=== PATIENT | male | born 1970 | race Caucasian/White ===

== ENCOUNTER 2021-07-19 17:02 | Inpatient (IN) | payer BC ==
[2021-07-19] MEDS ORDERED: PANTOPRAZOLE 40 MG/10 ML VIAL IVP STA (17:22)
[2021-07-19] MEDS ORDERED: SODIUM CHLORIDE 0.9% 1,000 ML IV STA (17:22)
--- NOTE | 2021-07-19 17:27 | ED ---
General Adult HPI - General Chief complaint: Nausea/Vomiting/Diarrhea Stated complaint: Dehydration, vomiting Time Seen by Provider: 07/19/21 17:10 Source: patient, RN/MD (Case was discussed with Dr. Barajas who would like patient admitted. He will consult.), RN notes reviewed Mode of arrival: ambulatory Limitations: no limitations - History of Present Illness Initial comments: Patient is a pleasant 51-year-old male presenting to the emergency department with dysphagia. Patient had symptoms last week. Patient does have history of tongue and throat cancer. Patient currently is on radiation and chemotherapy. Symptoms have progressively worsened over the past 4-5 days. Patient has limited ability to tolerate liquids. No dyspnea. Patient has been clear his throat frequently. No abdominal pain. No fevers. - Related Data Allergies Allergy/AdvReac Type Severity Reaction Status Date / Time No Known Allergies Allergy Verified 07/19/21 17:07 Review of Systems ROS Statement: Those systems with pertinent positive or pertinent negative responses have been documented in the HPI. ROS Other: All systems not noted in ROS Statement are negative. Constitutional: Denies: fever Eyes: Denies: eye pain ENT: Reports: as per HPI Respiratory: Reports: cough (Occasional cough). Denies: dyspnea Cardiovascular: Denies: chest pain Endocrine: Denies: fatigue Gastrointestinal: Denies: abdominal pain Genitourinary: Denies: dysuria Musculoskeletal: Denies: back pain Skin: Denies: rash Neurological: Denies: weakness Past Medical History Additional Past Medical History / Comment(s): chemo- 07/13/2021. radiation- 07-17-2021. cx of throat and tounge stage 2. History of Any Multi-Drug Resistant Organisms: None Reported Additional Past Surgical History / Comment(s): Arm surgery Past Psychological History: No Psychological Hx Reported Smoking Status: Never smoker Past Alcohol Use History: Unable to Obtain Past Drug Use History: None Reported General Exam Limitations: no limitations General appearance: alert, in no apparent distress Head exam: Present: normocephalic Eye exam: Present: normal appearance, PERRL ENT exam: Present: normal oropharynx Neck exam: Present: normal inspection Respiratory exam: Present: normal lung sounds bilaterally Cardiovascular Exam: Present: regular rate, normal rhythm GI/Abdominal exam: Present: soft. Absent: tenderness Extremities exam: Present: normal inspection. Absent: pedal edema, calf tenderness Neurological exam: Present: alert Psychiatric exam: Present: normal affect, normal mood Skin exam: Present: normal color Course Vital Signs 07/19/21 17:04 Temperature 96.8 F L Pulse Rate 61 Respiratory 18 Rate Blood Pressure 123/75 O2 Sat by Pulse 97 Oximetry Medical Decision Making - Medical Decision Making Patient is made aware of plan. Case was discussed with Dr. Acharya, who will admit covering hospital call. Disposition Clinical Impression: Dehydration, Dysphagia Disposition: ADMITTED IP TO THIS HOSP Is patient prescribed a controlled substance at d/c from ED?: No Referrals: Yari Valencia DO [Primary Care Provider] - 1-2 days Decision Time: 18:35
--- NOTE | 2021-07-19 17:39 | XR ---
EXAMINATION TYPE: XR soft tissue neck DATE OF EXAM: 07/19/2021 COMPARISON: NONE HISTORY: Dysphagia TECHNIQUE: 2 views FINDINGS: Epiglottis is normal. Subglottic trachea appears normal. Prevertebral soft tissues are not thickened. Cervical spine appears intact. Tonsils and adenoids appear within normal limits. IMPRESSION: Negative cervical soft tissue exam
--- NOTE | 2021-07-19 17:40 | XR ---
EXAMINATION TYPE: XR chest 2V DATE OF EXAM: 07/19/2021 COMPARISON: NONE HISTORY: Dysphagia TECHNIQUE: 2 view FINDINGS: Heart and mediastinum are normal. Lungs are clear of infiltrate. There is no heart failure. There is old healed fracture left clavicle. There is no pleural effusion. Bony thorax is intact. IMPRESSION: No active cardiopulmonary disease. Normal heart.
--- NOTE | 2021-07-19 17:41 | XR ---
EXAMINATION TYPE: XR KUB DATE OF EXAM: 07/19/2021 COMPARISON: NONE HISTORY: Dysphagia TECHNIQUE: 2 views upright FINDINGS: Bowel gas pattern is normal. There is no sign of intestinal obstruction or pneumoperitoneum . Fecal pattern is normal. There are no pathologic calcifications. Bony structures are intact. IMPRESSION: Nonacute abdomen.
[2021-07-19] MEDS ORDERED: ONDANSETRON 4 MG/2 ML VIAL IVP PRN (18:36)
[2021-07-19] MEDS ORDERED: NALOXONE 0.4 MG/ML 1 ML VIAL IV PRN (18:36)
[2021-07-19 18:38] LABS: Partial Thromboplastin Time 22.8 sec (22.0-30.0); Prothrombin Time 10.8 sec (9.0-12.0)
[2021-07-19 18:46] LABS: ALT 61 U/L (4-49); AST 34 U/L (17-59); African American GFR (CKD) >90 (>60 ml/min/1.73 sqM); Alkaline Phosphatase 86 U/L (38-126); Amylase 79 U/L (30-110); Anion Gap 8 mmol/L; Blood Urea Nitrogen 23 mg/dL (9-20); Calcium 9.6 mg/dL (8.4-10.2); Carbon Dioxide 29 mmol/L (22-30); Chloride 96 mmol/L (98-107); Glucose 92 mg/dL (74-99); Lipase 77 U/L (23-300); Non-African American GFR(CKD) 79 (>60 ml/min/1.73 sqM); Potassium 3.3 mmol/L (3.5-5.1); Sodium 133 mmol/L (137-145); Total Protein 7.1 g/dL (6.3-8.2)
[2021-07-19 18:57] LABS: HCT 41.8 % (39.0-53.0); HGB 15.1 gm/dL (13.0-17.5); MCH 31.6 pg (25.0-35.0); MCHC 36.3 g/dL (31.0-37.0); MCV 87.3 fL (80.0-100.0); Mean Platelet Volume 6.8; Platelet Count 284 k/uL (150-450); RBC 4.79 m/uL (4.30-5.90); RDW 12.6 % (11.5-15.5); WBC 3.6 k/uL (3.8-10.6)
[2021-07-19 19:13] LABS: Band Neutrophils % 4 %; Lymphocytes # (M) 0.79 k/uL (1.0-4.8); Metamyelocytes # (M) 0.04 k/uL (0); Metamyelocytes % 1 %; Monocytes # (M) 0.43 k/uL (0-1.0); Neutrophils % (M) 61 %; Nucleated Red Blood Cells 0 /100 WBC (0-0); Reactive Lymphocytes Present; Total Cells Counted 100; Toxic Granulation Present
[2021-07-19] MEDS: SODIUM CHLORIDE 0.9% 1,000 ML IV SCH (19:16)
[2021-07-19] MEDS: MORPHINE SULFATE 4 MG/ML SYRINGE IV PRN (22:39)
--- NOTE | 2021-07-20 04:01 | P.HPIM ---
History of Present Illness H&P Date: 07/19/21 Chief Complaint: dysphagia 51 year old male with recent diagnosis of throat cancer patient comes in with 1 week history of worsening dysphagia to both solid and liquid , symptoms got worse over the past 4-5days , patient unable to take PO due to dysphagia and odynophagia he was recently diagnosed with throat cancer, and currently receiving radiation therapy for the past 4 weeks. denies any fever, chills, bleeding from his mouth, denies any URI symptoms , denies headache, or dental issues. denies any history of GERD. he denies any similar symptoms in the past. workup in the ED showed, hypokalemia and COVID negative, CXR no acute pathology patient denies tobacco smoking, and admits to social alcohol intake , denies any thing daily or excessive, denies any drugs Review of Systems Pertinent positives as noted in HPI. All other systems were reviewed and are negative Past Medical History Additional Past Medical History / Comment(s): chemo- 07/13/2021. radiation- 07-17-2021. cx of throat and tounge stage 2. History of Any Multi-Drug Resistant Organisms: None Reported Additional Past Surgical History / Comment(s): Arm surgery Past Psychological History: No Psychological Hx Reported Smoking Status: Never smoker Past Alcohol Use History: Unable to Obtain Past Drug Use History: None Reported - Past Family History famioy Family Medical History: No Reported History Medications and Allergies Home Medications Medication Instructions Recorded Confirmed Type Atorvastatin [Lipitor] 20 mg PO HS 07/19/21 07/19/21 History Hydrocodone/Acetaminophen 15 ml PO Q8H PRN 07/19/21 07/19/21 History [Hydrocodone/Acetaminophen 7.5-325/15 Ml] Omeprazole 40 mg PO DAILY 07/19/21 07/19/21 History hydroCHLOROthiazide 25 mg PO DAILY 07/19/21 07/19/21 History Allergies Allergy/AdvReac Type Severity Reaction Status Date / Time No Known Allergies Allergy Verified 07/19/21 19:41 Physical Exam Vitals: Vital Signs Temp Pulse Pulse Resp BP BP Pulse Ox 07/19/21 22:14 98.5 F 71 16 136/76 95 07/19/21 17:04 96.8 F L 61 18 123/75 97 Intake and Output 07/19/21 07/19/21 07/20/21 14:59 22:59 06:59 Other: Weight 133.81 kg Constitutional: No acute distress, conversant, pleasant Eyes: Anicteric sclerae, moist conjunctiva, Pupils equal round reactive to light ENMT: NC/AT Oropharynx showing sloughing and yellowish exudate over soft palate and oropharynx with erythema Neck: Supple, palpable LN submandibular and anterior cervical over left side, or JVD No carotid bruits No thyromegaly Lungs: Clear to auscultation Clear to percussion Normal respiratory effort, no accessory muscle use Cardiovascular: Heart regular in rate and rhythm, No murmurs, gallops, or rubs No peripheral edema Abdominal: Soft Nontender, no guarding, rebound or rigidity Abdomen moving with respiration Normoactive bowel sounds No hepatomegaly, No splenomegaly No palpable mass No abdominal wall hernia noted Skin: Normal temperature, tone, texture, turgor No induration No subcutaneous nodules No rash, lesions No ulcers Extremities: No digital cyanosis No clubbing Pedal pulses intact and symmetrical Radial pulses intact and symmetrical No calf tenderness Psychiatric: Alert and oriented to person, place and time Appropriate affect fair judgement Neuro Muscles Strength 5/5 in all 4 extremities Sensation to light touch grossly present throughout Cranial nerves II-XII grossly intact No focal sensory deficits Lymphatics: palpable left submandibular and anterior cervical lymph nodes Results CBC & Chem 7: 07/19/21 18:19 07/19/21 18:19 Labs: Abnormal Lab Results - Last 24 Hours (Table) 07/19/21 07/19/21 Range/Units 18:19 18:19 WBC 3.6 L (3.8-10.6) k/uL Lymphocytes # (Manual) 0.79 L (1.0-4.8) k/uL Metamyelocytes # (Man) 0.04 H (0) k/uL Sodium 133 L (137-145) mmol/L Potassium 3.3 L (3.5-5.1) mmol/L Chloride 96 L (98-107) mmol/L BUN 23 H (9-20) mg/dL ALT 61 H (4-49) U/L Assessment and Plan Assessment: acute mucositis of the oropharynx (Radiation induced oral mucositis) throat cancer plan artificial saliva mouth wash nystatin supportive care pain control with opiates oncology consult IVF hydration with normal saline hypokalemia , replace and follow up levels full code lovenox for dvt ppx anticipated length of stay < 2 midnis
[2021-07-20] MEDS ORDERED: POTASSIUM BICARBONATE/CIT AC 20 MEQ TABLET.EFF PO ONE (04:03)
[2021-07-20] MEDS: MORPHINE SULFATE 4 MG/ML SYRINGE IV PRN (04:04)
[2021-07-20] MEDS: SODIUM CHLORIDE 0.9% 1,000 ML IV SCH ×3 (04:04→21:21)
[2021-07-20] MEDS ORDERED: LIDOCAINE VISCOUS 2% 15 ML CUP MUCOUS MEM PRN (06:00)
[2021-07-20] MEDS ORDERED: NYSTATIN 100,000 UNIT/ML SUSP 500,000 UNIT/5 ML CUP PO SCH (09:00)
[2021-07-20] MEDS ORDERED: PANTOPRAZOLE 40 MG/10 ML VIAL IV SCH (09:00)
[2021-07-20] MEDS ORDERED: DRY MOUTH SPRAY 44.3 SPRAY/44.3 ML SPRAY MUCOUS MEM PRN (09:00)
[2021-07-20] MEDS: PANTOPRAZOLE 40 MG TABLET PO SCH (09:03)
[2021-07-20] MEDS: hydroCHLOROthiazide 25 MG TAB PO SCH (09:03)
[2021-07-20] MEDS: ENOXAPARIN 40 MG/0.4 ML SYRINGE SQ SCH (09:04)
[2021-07-20 10:27] LABS: African American GFR (CKD) 81.8 (60.0-200.0); Anion Gap 12.7 mmol/L (10.00-18.00); BUN/Creat Ratio 15.5 Ratio (12.00-20.00); Blood Urea Nitrogen 18.6 mg/dL (9.0-27.0); Calcium 9.3 mg/dL (8.7-10.3); Carbon Dioxide 29.3 mmol/L (20.0-27.5); Non-African American GFR(CKD) 70.6 (60.0-200.0); Potassium 3.6 mmol/L (3.5-5.5)
--- NOTE | 2021-07-20 12:09 | P.CONS ---
History of Present Illness - Reason for Consult Consult date: 07/20/21 completed treatment for head/neck Requesting physician: Aleksandr Sierra - Chief Complaint dyphagia - History of Present Illness Mr. Blakely is a very pleasant 51-year-old male patient of Dr. Roche who presented with a painless left mid cervical lesion persistent for about 2-3 months, progressively enlarging. He had a CT scan done showing 2 enlarged cervical lymph nodes, the largest was 3.3 cm. FNA 03/10/21 was positive for squamous cell carcinoma, P 16 positive. Staging PET scan 04/07/21 showed uptake in the 2 known cervical lymph nodes and left base of the tongue, which was felt to represent the primary tumor site. No other metastatic lesions, no contralateral lymphadenopathy. Patient was evaluated by Dr. Leon, recommendation was for neoadjuvant concurrent chemoradiation. Patient is status post 2 cycles of cisplatin, 07/13/21. He has 2 more weeks of radiation to complete. He has had mild symptoms up until this past weekend. His contacted the service, patient has been having difficulty maintaining oral intake secondary to dysphagia and odynophagia, he has also been experiencing nausea and vomiting, moderate dry mucous membranes. On admission h e was found to have hyponatremia, hypokalemia. He did have an episode of vomiting this a.m. No recent fevers, new or unusual cough, suspicions for aspiration, chest pain, abdominal pain or cramping, acute changes in bowel or bladder habits. The pain he is experiencing is limited to the oral cavity and swallowing Review of Systems 10 point ROS is neg except as stated in HPI Past Medical History Past Medical History: Cancer, Hyperlipidemia, Hypertension Additional Past Medical History / Comment(s): chemo- 07/13/2021. radiation- 07-17-2021. cx of throat and tounge stage 2. History of Any Multi-Drug Resistant Organisms: None Reported Additional Past Surgical History / Comment(s): Arm surgery, has had colonoscopy Additional Past Anesthesia/Blood Transfusion Reaction / Comm: No hx of transfusion at this time Past Psychological History: No Psychological Hx Reported Smoking Status: Never smoker Past Alcohol Use History: Unable to Obtain Past Drug Use History: None Reported - Past Family History famioy Family Medical History: No Reported History Medications and Allergies Home Medications Medication Instructions Recorded Confirmed Type Atorvastatin [Lipitor] 20 mg PO HS 07/19/21 07/19/21 History Hydrocodone/Acetaminophen 15 ml PO Q8H PRN 07/19/21 07/19/21 History [Hydrocodone/Acetaminophen 7.5-325/15 Ml] Omeprazole 40 mg PO DAILY 07/19/21 07/19/21 History hydroCHLOROthiazide 25 mg PO DAILY 07/19/21 07/19/21 History Allergies Allergy/AdvReac Type Severity Reaction Status Date / Time No Known Allergies Allergy Verified 07/19/21 19:41 Physical Exam Vitals: Vital Signs Temp Pulse Pulse Resp BP BP Pulse Ox 07/20/21 04:32 97.7 F 87 16 120/70 97 07/19/21 22:14 98.5 F 71 16 136/76 95 07/19/21 17:04 96.8 F L 61 18 123/75 97 Intake and Output 07/19/21 07/20/21 07/20/21 22:59 06:59 14:59 Intake Total 1420 Balance 1420 Intake: Intake, IV Titration 1300 Amount Sodium Chloride 0.9% 1, 1300 000 ml @ 130 mls/hr IV . Q7H42M [facility] Rx#:[id number] Oral 120 Other: # Voids 1 Weight 133.81 kg - Constitutional General appearance: average body habitus, cooperative, no acute distress - EENT dry mucus membranes Eyes: anicteric sclerae, EOMI ENT: hearing grossly normal - Neck Neck: no lymphadenopathy - Respiratory Respiratory: bilateral: CTA - Cardiovascular Rhythm: regular Heart sounds: normal: S1, S2 Abnormal Heart Sounds: no systolic murmur, no diastolic murmur, no rub, no S3 Gallop, no S4 Gallop, no click, no other leg Peripheral Edema: bilateral: None - Gastrointestinal General gastrointestinal: no absent bowel sounds, no decreased bowel sounds, no distended, no hepatomegaly, no hyperactive bowel sounds, normal bowel sounds, no organomegaly, no rigid, no scaphoid, soft, no splenomegaly, no tenderness, no umbilical hernia, no ventral hernia - Integumentary Integumentary: normal - Neurologic Neurologic: CNII-XII intact - Musculoskeletal Musculoskeletal: strength equal bilaterally - Psychiatric Psychiatric: A&O x's 3, appropriate affect, intact judgment & insight Results CBC & Chem 7: 07/19/21 18:19 07/20/21 05:15 Labs: Abnormal Lab Results - Last 24 Hours (Table) 07/19/21 07/19/21 Range/Units 18:19 18:19 WBC 3.6 L (3.8-10.6) k/uL Lymphocytes # (Manual) 0.79 L (1.0-4.8) k/uL Metamyelocytes # (Man) 0.04 H (0) k/uL Sodium 133 L (137-145) mmol/L Potassium 3.3 L (3.5-5.1) mmol/L Chloride 96 L (98-107) mmol/L BUN 23 H (9-20) mg/dL ALT 61 H (4-49) U/L Comments: Xray neck report reviewed Chest x-ray: report reviewed Abdominal x-ray: report reviewed Assessment and Plan (1) Dehydration Narrative/Plan: IV fluids and electrolyte replacements Current Visit: Yes Status: Acute Priority: High Code(s): E86.0 - DEHYDRATION SNOMED Code(s): 50657476 (2) Dysphagia Narrative/Plan: Kools solution with nystatin ordered 5xDay Dietitian to assess pt and provide options for dysphagia/odynophagia Current Visit: Yes Status: Acute Priority: High Code(s): R13.10 - DYSPHAGIA, UNSPECIFIED SNOMED Code(s): 86835681 (3) Squamous cell cancer of tongue Narrative/Plan: Patient has completed 2 cycles of cisplatin, last dose was 7 days ago. Vomiting and electrolyte derangements are likely secondary to the same. Supportive medications, hydration are all ordered. Discussed the case with Radiation Oncologist. Plan is to hold treatment for today. Radiation Oncologist will see patient and determine when resumption of therapy is most appropriate. Dr. Barajas did discuss with the patient the possibility of palliative PEG tube for nutrition and hydration until completion of treatment. For the next 1-2 days would like to try to treat the side effects of chemotherapy and ease symptoms. Have also asked the dietitian to see the patient to educate them and provide accommodations for clear and full liquid high calorie/protein options. Will reassess the pt and decide with patient if he thinks he will be able to manage for 2 more weeks of radiation as well as an additional 2 weeks of recovery time- total 4 weeks. Will f/u. Current Visit: Yes Status: Acute Priority: High Code(s): C02.9 - MALIGNANT NEOPLASM OF TONGUE, UNSPECIFIED SNOMED Code(s): 734280526 (4) Vomiting Narrative/Plan: Olanzapine and zofran ordered. Current Visit: Yes Status: Acute Priority: High Code(s): R11.10 - VOMITING, UNSPECIFIED SNOMED Code(s): 057043044 Plan: Doctor attests: I performed a history and physical examination of this patient, developed impression and plan of care, discussed with dictator. I agree with dictators note, documented as a scribe.
[2021-07-20] MEDS: MAG HYDROX/AL HYDROX/SIMETH 30 ML, LIDOCAINE VISCOUS 2% 30 ML, diphenhydrAMINE ELIXIR 7... PO SCH ×12 (13:21→21:22)
[2021-07-20] MEDS: ONDANSETRON 4 MG/2 ML VIAL IVP PRN ×2 (13:21→17:51)
[2021-07-20 14:30] VITALS: BMI 40.0
--- NOTE | 2021-07-20 15:53 | P.PN ---
<Cristo Zamora - Last Filed: 07/20/21 15:37> Subjective Progress Note Date: 07/20/21 Hospital course: Patient is a very pleasant 51-year-old male recently diagnosed with throat cancer (squamous cell carcinoma ) and began chemotherapy and radiation 4 weeks ago. Patient reports follows with oncologist Dr. Roche in office and Dr. Martin for radiation/chemotherapy treatments. He presented to the emergency department 07/19/21 with a chief complaint of worsening dysphasia patient reports this began approximately 1 weeks ago after undergoing his second course of chemotherapy on 07/13/21 and has progressively worsened. Patient reports last radiation treatment on 07/19/21 and next dose due today. In the emergency department, patient underwent x-ray soft tissue of neck which was negative for cervical soft tissue abnormalities. Chest x-ray was negative for acute cardiopulmonary process An KUB was also negative for acute process. Patient was found to have leukopenia with WBC count of 3.6, hyponatremia with sodium of 133, and hypokalemia with potassium of 3.3. Labs otherwise showing no sig nificant abnormalities. Covid PCR was negative. Physical exam: Vital signs reviewed and stable. General: Nontoxic, no distress and appears stated age. Derm: Skin warm and dry, normal coloration for ethnicity. Head: Atraumatic, normocephalic and symmetric. Eyes: EOMs intact, no lid lag, and anicteric sclera Mouth: no lip lesions, mucus membranes dry Cardiovascular: regular rate and rhythm with normal S1S2, no murmur, positive posterior tibial pulses bilaterally, and cap refill < 2 seconds. Lungs: Respirations even, regular, and unlabored on room air. Lungs CTA bilaterally, no rhonchi, no rales, no wheezing, and no accessory muscle usage. Abdominal: soft, nontender to palpation, no guarding, no appreciable organomegaly Ext: ROM intact. No gross muscle atrophy, no edema, no contractures Neuro: Speech clear, face symmetrical and CN II-XII grossly intact with no noted focal neuro deficits Psych: Alert and oriented to person, place, time, and situation. Appropriate and pleasant affect. Assessment and Plan of Care: Acute mucositis, radiation-induced oral mucositis Squamous cell carcinoma of the throat Dysphasia Xerostomia -Continue with artificial saliva -Magic mouthwash -Nystatin -Symptomatic and supportive measures -Pain control with opiates -Oncology consult -Continue hydration with IV fluids. Leukopenia, secondary to current anti-neoplastic medications/treatment -We will provide neutropenic precautions for patient safety and continue to monitor with repeat a.m. labs. Hypokalemia, resolved Hyponatremia, resolved CODE STATUS: Full code DVT prophylaxis: Lovenox Discussed with: Patient and RN Anticipated discharge date: Clinical course to determine Anticipated discharge place: Home A total of 35 minutes was spent on the care of this complex patient more than 50% of the time was spent in counseling and care coordination. Objective - Vital Signs Vital signs: Vital Signs Temp 97.7 F 07/20/21 04:32 Pulse 87 07/20/21 04:32 Resp 16 07/20/21 04:32 BP 120/70 07/20/21 04:32 Pulse Ox 97 07/20/21 04:32 Intake & Output 07/19/21 07/20/21 07/20/21 18:59 06:59 18:59 Intake Total 1420 Balance 1420 Weight 133.81 kg 133.81 kg Intake: Intake, IV Titration 1300 Amount Sodium Chloride 0.9% 1, 1300 000 ml @ 130 mls/hr IV . Q7H42M [facility] Rx#:[id number] Oral 120 Other: # Voids 1 - Labs CBC & Chem 7: 07/19/21 18:19 07/20/21 05:15 Labs: Abnormal Lab Results - Last 24 Hours (Table) 07/19/21 07/19/21 Range/Units 18:19 18:19 WBC 3.6 L (3.8-10.6) k/uL Lymphocytes # (Manual) 0.79 L (1.0-4.8) k/uL Metamyelocytes # (Man) 0.04 H (0) k/uL Sodium 133 L (137-145) mmol/L Potassium 3.3 L (3.5-5.1) mmol/L Chloride 96 L (98-107) mmol/L BUN 23 H (9-20) mg/dL ALT 61 H (4-49) U/L <Sancoh Morrison - Last Filed: 07/20/21 16:32> Subjective I reviewed the documentation as provided by the CHENG above, who is the original author of this note. I agree with the documented assessment and plan, with the following changes: None Objective - Vital Signs Vital signs: Vital Signs Temp 98 F 07/20/21 13:00 Pulse 59 L 07/20/21 13:00 Resp 18 07/20/21 13:00 BP 155/84 07/20/21 13:00 Pulse Ox 97 07/20/21 13:00 Intake & Output 07/19/21 07/20/21 07/20/21 18:59 06:59 18:59 Intake Total 1420 Balance 1420 Weight 133.81 kg 133.81 kg 133.81 kg Intake: Intake, IV Titration 1300 Amount Sodium Chloride 0.9% 1, 1300 000 ml @ 130 mls/hr IV . Q7H42M [facility] Rx#:[id number] Oral 120 Other: # Voids 1 - Labs CBC & Chem 7: 07/19/21 18:19 07/20/21 05:15 Labs: Abnormal Lab Results - Last 24 Hours (Table) 07/19/21 07/19/21 07/20/21 Range/Units 18:19 18:19 05:15 WBC 3.6 L (3.8-10.6) k/uL Lymphocytes # (Manual) 0.79 L (1.0-4.8) k/uL Metamyelocytes # (Man) 0.04 H (0) k/uL Sodium 133 L (137-145) mmol/L Potassium 3.3 L (3.5-5.1) mmol/L Chloride 96 L (98-107) mmol/L Carbon Dioxide 29.3 H (20.0-27.5) mmol/L BUN 23 H (9-20) mg/dL ALT 61 H (4-49) U/L
--- NOTE | 2021-07-20 16:05 | P.PN ---
Subjective Progress Note Date: 07/20/21 Principal diagnosis: sore throat/nausea Patient reports his throat has been increasingly sore of the past few days. Mostly when talking/swallowing. Seems to get some good relief from magic mouth wash, but this wears off. He also has been quite nauseous. He threw up 2x earlier today, but has since kept his lunch down. He is mostly drinking water and eating jello. Also complains of thickened secretions. Objective - Vital Signs Vital signs: Vital Signs Temp 98 F 07/20/21 13:00 Pulse 59 L 07/20/21 13:00 Resp 18 07/20/21 13:00 BP 155/84 07/20/21 13:00 Pulse Ox 97 07/20/21 13:00 Intake & Output 07/19/21 07/20/21 07/20/21 18:59 06:59 18:59 Intake Total 1420 Balance 1420 Weight 133.81 kg 133.81 kg 133.81 kg Intake: Intake, IV Titration 1300 Amount Sodium Chloride 0.9% 1, 1300 000 ml @ 130 mls/hr IV . Q7H42M [facility] Rx#:[id number] Oral 120 Other: # Voids 1 - Constitutional General appearance: Present: no acute distress - EENT Eyes: Present: EOMI, PERRLA ENT: Present: normal oropharynx - Neck Neck: Present: lymphadenopathy - Respiratory Respiratory: bilateral: CTA - Cardiovascular Rhythm: regular - Integumentary Integumentary: Absent: calor - Neurologic Neurologic: Present: CNII-XII intact - Psychiatric Psychiatric: Present: A&O x's 3, appropriate affect - Labs CBC & Chem 7: 07/19/21 18:19 07/20/21 05:15 Labs: Abnormal Lab Results - Last 24 Hours (Table) 07/19/21 07/19/21 07/20/21 Range/Units 18:19 18:19 05:15 WBC 3.6 L (3.8-10.6) k/uL Lymphocytes # (Manual) 0.79 L (1.0-4.8) k/uL Metamyelocytes # (Man) 0.04 H (0) k/uL Sodium 133 L (137-145) mmol/L Potassium 3.3 L (3.5-5.1) mmol/L Chloride 96 L (98-107) mmol/L Carbon Dioxide 29.3 H (20.0-27.5) mmol/L BUN 23 H (9-20) mg/dL ALT 61 H (4-49) U/L Assessment and Plan Assessment: The patient is a 51-year-old male with a history of a recently diagnosed clinical stage I (cT2, cN1, 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 He has been enrolled on [facility] HN-[id number] and randomized to Arm 2 with cisplatin + 6 weeks RT. He has completed 4/6 weeks of radiation. Hospitalized due to dehydration and difficulty with PO intake due to nausea and mucositis. Plan: 1. Poor PO intake: Due to chemoradiation. Patient has had discussion RE PEG tube - he hopes to avoid, but currently only tolerating liquids/jello. May be partially due to increased nausea/vomiting from chemo the week prior. Will re- assess tomorrow. Continue Magic mouth wash + narcotic pain medication. 2. SCCa of oropharynx: Hold XRT today - will re-evaluate tomorrow. 10 treatments remaining. Did explain that even after completion of therapy that symptoms of treatment would linger for 2-3 weeks. Time with Patient: Less than 30
[2021-07-20] MEDS: ATORVASTATIN 20 MG TAB PO SCH (21:20)
[2021-07-20] MEDS: OLANZapine 2.5 MG TAB PO SCH (21:20)
[2021-07-21] MEDS: MAG HYDROX/AL HYDROX/SIMETH 30 ML, LIDOCAINE VISCOUS 2% 30 ML, diphenhydrAMINE ELIXIR 7... PO SCH ×24 (00:22→23:52)
[2021-07-21] MEDS: SODIUM CHLORIDE 0.9% 1,000 ML IV SCH ×4 (06:20→23:52)
--- NOTE | 2021-07-21 10:31 | P.PN ---
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 Patient reports follows with oncologist Dr. Roche in office and Dr. Martin for radiation/chemotherapy treatments. He presented to the emergency department 07/19/21 with a chief complaint of worsening dysphasia patient reports this began approximately 1 weeks ago after undergoing his second course of chemotherapy on 07/13/21 and has progressively worsened. Patient reports last radiation treatment on 07/19/21 and next dose due today. In the emergency department, patient underwent x-ray soft tissue of neck which was negative for cervical soft tissue abnormalities. Chest x-ray was negative for acute cardiopulmonary process An KUB was also negative for acute process. Patient was found to have leukopenia with WBC count of 3.6, hyponatremia with sodium of 133, and hypokalemia with potassium of 3.3. Labs otherwise showing no significant abnormalities. Covid PCR was negative. Physical exam: Patient seen and fully evaluated at the bedside this morning. Patient going down for barium swallow evaluation. He reports continued difficulty swallowing and continued dry mouth. He denies having any chest pain, palpitations, shortness of breath, or experiencing any numbness/tingling/weakness in his extremities. Dr. Martin has arranged for patient to continue radiation therapy this afternoon. Vital signs reviewed and stable. General: Nontoxic, no distress and appears stated age. Derm: Skin warm and dry, normal coloration for ethnicity. Head: Atraumatic, normocephalic and symmetric. Eyes: EOMs intact, no lid lag, and anicteric sclera Mouth: no lip lesions, mucus membranes dry Cardiovascular: regular rate and rhythm with normal S1S2, no murmur, positive posterior tibial pulses bilaterally, and cap refill < 2 seconds. Lungs: Respirations even, regular, and unlabored on room air. Lungs CTA bilaterally, no rhonchi, no rales, no wheezing, and no accessory muscle usage. Abdominal: soft, nontender to palpation, no guarding, no appreciable organom egaly Ext: ROM intact. No gross muscle atrophy, no edema, no contractures Neuro: Speech clear, face symmetrical and CN II-XII grossly intact with no noted focal neuro deficits Psych: Alert and oriented to person, place, time, and situation. Appropriate and pleasant affect. Assessment and Plan of Care: Acute mucositis, radiation-induced oral mucositis Squamous cell carcinoma of the throat Dysphasia Xerostomia -Continue with artificial saliva -Magic mouthwash -Nystatin -Symptomatic and supportive measures -Pain control with opiates -Oncology following appreciate further recommendations -Radiation oncologist following, Dr. Martin and he has arranged for continued radiation treatments. -Continue hydration with IV fluids. Leukopenia, secondary to current anti-neoplastic medications/treatment -We will provide neutropenic precautions for patient safety and continue to monitor with repeat a.m. labs. Hypokalemia, resolved Hyponatremia, resolved CODE STATUS: Full code DVT prophylaxis: Lovenox Discussed with: Patient and RN Anticipated discharge date: Clinical course to determine Anticipated discharge place: Home A total of 35 minutes was spent on the care of this complex patient more than 50% of the time was spent in counseling and care coordination. Objective - Vital Signs Vital signs: Vital Signs Temp 98.1 F 07/21/21 04:53 Pulse 106 H 07/21/21 04:53 Resp 18 07/21/21 04:53 BP 153/92 07/21/21 04:53 Pulse Ox 95 07/21/21 04:53 Intake & Output 07/20/21 07/21/21 07/21/21 18:59 06:59 18:59 Intake Total 1800 Output Total 400 Balance 1800 -400 Weight 133.81 kg Intake: Intake, IV Titration 1400 Amount Sodium Chloride 0.9% 1, 1400 000 ml @ 130 mls/hr IV . Q7H42M [facility] Rx#:[id number] Oral 400 Output: Urine 400 Other: # Voids 3 - Labs CBC & Chem 7: 07/19/21 18:19 07/20/21 05:15 Labs: Abnormal Lab Results - Last 24 Hours (Table) 07/20/21 Range/Units 05:15 Carbon Dioxide 29.3 H (20.0-27.5) mmol/L <Sancho Morrison - Last Filed: 07/22/21 16:24> Subjective I reviewed the documentation as provided by the CHENG above, who is the original a uthor of this note. I agree with the documented assessment and plan, with the following changes: None Objective - Vital Signs Vital signs: Vital Signs Temp 98.0 F 07/22/21 11:41 Pulse 63 07/22/21 11:41 Resp 20 07/22/21 11:41 BP 121/80 07/22/21 11:41 Pulse Ox 98 07/22/21 11:41 Intake & Output 07/21/21 07/22/21 07/22/21 18:59 06:59 18:59 Intake Total 1560 1440 360 Balance 1560 1440 360 Intake: Intake, IV Titration 1560 1040 Amount Sodium Chloride 0.9% 1, 1560 1040 000 ml @ 130 mls/hr IV . Q7H42M [facility] Rx#:[id number] Oral 400 360 Other: Voiding Method Toilet Toilet Toilet # Voids 2 2 - Labs CBC & Chem 7: 07/19/21 18:19 07/20/21 05:15
[2021-07-21] MEDS: ONDANSETRON 4 MG/2 ML VIAL IVP PRN (11:01)
[2021-07-21] MEDS: ENOXAPARIN 40 MG/0.4 ML SYRINGE SQ SCH (11:52)
[2021-07-21] MEDS: PANTOPRAZOLE 40 MG TABLET PO SCH (11:53)
[2021-07-21] MEDS: hydroCHLOROthiazide 25 MG TAB PO SCH (11:53)
--- NOTE | 2021-07-21 12:16 | P.PN ---
Subjective Progress Note Date: 07/21/21 Principal diagnosis: dehydration, dysphagia in follow-up today patient is just returned from his swallowing eval, pending results. He is tolerating Jell-O this morning, no vomiting. He states that the supportive medications are helping with the pain in the throat. Objective - Vital Signs Vital signs: Vital Signs Temp 98.1 F 07/21/21 11:50 Pulse 77 07/21/21 11:50 Resp 18 07/21/21 11:50 BP 118/72 07/21/21 11:50 Pulse Ox 98 07/21/21 11:50 Intake & Output 07/20/21 07/21/21 07/21/21 18:59 06:59 18:59 Intake Total 1800 Output Total 400 Balance 1800 -400 Weight 133.81 kg Intake: Intake, IV Titration 1400 Amount Sodium Chloride 0.9% 1, 1400 000 ml @ 130 mls/hr IV . Q7H42M [facility] Rx#:[id number] Oral 400 Output: Urine 400 Other: # Voids 3 - Constitutional General appearance: Present: average body habitus, cooperative, no acute distress - EENT Eyes: Present: anicteric sclerae, EOMI ENT: Present: hearing grossly normal, normal oropharynx - Respiratory Respiratory: bilateral: CTA - Cardiovascular Rhythm: regular Heart sounds: normal: S1, S2 Abnormal Heart Sounds: Absent: systolic murmur, diastolic murmur, rub, S3 Gallop, S4 Gallop, click, other - Peripheral edema leg Peripheral Edema: bilateral: None - Gastrointestinal General gastrointestinal: Present: normal bowel sounds, soft - Neurologic Neurologic: Present: CNII-XII intact - Musculoskeletal Musculoskeletal: Present: strength equal bilaterally - Psychiatric Psychiatric: Present: A&O x's 3, appropriate affect, intact judgment & insight - Labs CBC & Chem 7: 07/19/21 18:19 07/20/21 05:15 Assessment and Plan (1) Dehydration Narrative/Plan: IV fluids and electrolyte replacements Current Visit: Yes Status: Acute Priority: High Code(s): E86.0 - DEHYDRATION SNOMED Code(s): 76156977 (2) Dysphagia Narrative/Plan: Kools solution with nystatin ordered 5xDay Dietitian to assess pt and provide options for dysphagia/odynophagia Current Visit: Yes Status: Acute Priority: High Code(s): R13.10 - DYSPHAGIA, UNSPECIFIED SNOMED Code(s): 39169505 (3) Squamous cell cancer of tongue Narrative/Plan: Patient has completed 2/2 cycles of cisplatin, last dose was 7 days ago. Vomiting and electrolyte derangements are likely secondary to the same. Supportive medications, hydration are all ordered. Labs improved today Radiation Oncologistto f/u today with pt and determine when resumption of therapy is most appropriate. Did review case with Speech therapist, pending swallow eval and recs. If pt is aspirating then he will need PEG placement. If he is is not, then cont supportive meds. Will plan for hydration in the outpt setting for the next 4 weeks. Pt dysphagia and odynophagia are improved today. He did tolerate jello. Dietitian has seen pt. Current Visit: Yes Status: Acute Priority: High Code(s): C02.9 - MALIGNANT NEOPLASM OF TONGUE, UNSPECIFIED SNOMED Code(s): 279731430 (4) Vomiting Narrative/Plan: Olanzapine and zofran ordered. No vomiting today Current Visit: Yes Status: Acute Priority: High Code(s): R11.10 - VOMITING, UNSPECIFIED SNOMED Code(s): 990479582 Plan: Doctor attests: I performed a history and physical examination of this patient, developed impression and plan of care, discussed with dictator. I agree with dictators note, documented as a scribe.
[2021-07-21] MEDS: OLANZapine 2.5 MG TAB PO SCH (19:56)
[2021-07-21] MEDS: ATORVASTATIN 20 MG TAB PO SCH (19:56)
--- NOTE | 2021-07-21 22:55 | FL ---
EXAMINATION TYPE: FL barium swallow w video DATE OF EXAM: 07/21/2021 MODIFIED SWALLOW / DEGLUTITION STUDY CLINICAL HISTORY: Rule out aspiration TECHNIQUE: Deglutition study is performed utilizing thin liquid barium, honey and nectar thick liqui d barium, barium thick applesauce, and barium coated cracker. COMPARISON: None. FINDINGS: There is no evidence of penetration or aspiration with any modality tested. Fluoroscopic ti me of 1 minute and 3 seconds. No images provided. IMPRESSION: No laryngeal penetration or aspiration at the time of the study. Please refer to speech therapist notes for further details.
[2021-07-22] MEDS: MAG HYDROX/AL HYDROX/SIMETH 30 ML, LIDOCAINE VISCOUS 2% 30 ML, diphenhydrAMINE ELIXIR 7... PO SCH ×16 (04:20→19:32)
[2021-07-22] MEDS: SODIUM CHLORIDE 0.9% 1,000 ML IV SCH ×3 (04:21→17:20)
[2021-07-22] MEDS: MORPHINE SULFATE 4 MG/ML SYRINGE IV PRN (09:22)
[2021-07-22] MEDS: PANTOPRAZOLE 40 MG TABLET PO SCH (09:23)
[2021-07-22] MEDS: ENOXAPARIN 40 MG/0.4 ML SYRINGE SQ SCH (09:23)
[2021-07-22] MEDS: hydroCHLOROthiazide 25 MG TAB PO SCH (09:23)
--- NOTE | 2021-07-22 11:20 | P.PN ---
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 Patient reports follows with oncologist Dr. Roche in office and Dr. Martin for radiation/chemotherapy treatments. He presented to the emergency department 07/19/21 with a chief complaint of worsening dysphasia patient reports this began approximately 1 weeks ago after undergoing his second course of chemotherapy on 07/13/21 and has progressively worsened. Patient reports last radiation treatment on 07/19/21 and next dose due today. In the emergency department, patient underwent x-ray soft tissue of neck which was negative for cervical soft tissue abnormalities. Chest x-ray was negative for acute cardiopulmonary process An KUB was also negative for acute process. Patient was found to have leukopenia with WBC count of 3.6, hyponatremia with sodium of 133, and hypokalemia with potassium of 3.3. Labs otherwise showing no significant abnormalities. Covid PCR was negative. Physical exam: Patient seen and fully evaluated at the bedside this morning. Patient doing well this morning. He has been tolerating oral intake and diet being increased to full liquids. Patient just returned from radiation therapy. He continues to deny having any headache, lightheadedness, dizziness, chest pain, palpitations, or shortness of breath. Vital signs reviewed and stable. General: Nontoxic, no distress and appears stated age. Derm: Skin warm and dry, normal coloration for ethnicity. Head: Atraumatic, normocephalic and symmetric. Eyes: EOMs intact, no lid lag, and anicteric sclera Mouth: no lip lesions, mucus membranes dry Cardiovascular: regular rate and rhythm with normal S1S2, no murmur, positive posterior tibial pulses bilaterally, and cap refill < 2 seconds. Lungs: Respirations even, regular, and unlabored on room air. Lungs CTA bilaterally, no rhonchi, no rales, no wheezing, and no accessory muscle usage. Abdominal: soft, nontender to palpation, no guarding, no appreciable organomegaly Ext: ROM intact. No gross muscle atrophy, no edema, no contractures Neuro: Speech clear, face symmetrical and CN II-XII grossly intact with no noted focal neuro deficits Psych: Alert and oriented to person, place, time, and situation. Appropriate and pleasant affect. Assessment and Plan of Care: Acute mucositis, radiation-induced oral mucositis Squamous cell carcinoma of the throat Dysphasia Xerostomia -Continue with artificial saliva -Magic mouthwash -Nystatin -Symptomatic and supportive measures -Pain control with opiates -Oncology following appreciate further recommendations -Radiation oncologist following, Dr. Martin and he has arranged for continued r adiation treatments. -Continue hydration with IV fluids. Leukopenia, secondary to current anti-neoplastic medications/treatment -We will provide neutropenic precautions for patient safety and continue to monitor with repeat a.m. labs. Hypokalemia, resolved Hyponatremia, resolved CODE STATUS: Full code DVT prophylaxis: Lovenox Discussed with: Patient and RN Anticipated discharge date: Clinical course to determine Anticipated discharge place: Home A total of 35 minutes was spent on the care of this complex patient more than 50% of the time was spent in counseling and care coordination. Objective - Vital Signs Vital signs: Vital Signs Temp 98.7 F 07/22/21 05:00 Pulse 70 07/22/21 05:00 Resp 18 07/22/21 05:00 BP 134/64 07/22/21 05:00 Pulse Ox 98 07/22/21 05:00 Intake & Output 07/21/21 07/22/21 07/22/21 18:59 06:59 18:59 Intake Total 1560 1440 Balance 1560 1440 Intake: Intake, IV Titration 1560 1040 Amount Sodium Chloride 0.9% 1, 1560 1040 000 ml @ 130 mls/hr IV . Q7H42M [facility] Rx#:[id number] Oral 400 Other: Voiding Method Toilet Toilet # Voids 2 - Labs CBC & Chem 7: 07/19/21 18:19 07/20/21 05:15 <Sancho Morrison - Last Filed: 07/22/21 16:16> Subjective I reviewed the documentation as provided by the CHENG above, who is the original author of this note. I agree with the documented assessment and plan, with the following changes: None Objective - Vital Signs Vital signs: Vital Signs Temp 98.0 F 07/22/21 11:41 Pulse 63 07/22/21 11:41 Resp 20 07/22/21 11:41 BP 121/80 07/22/21 11:41 Pulse Ox 98 07/22/21 11:41 Intake & Output 07/21/21 07/22/21 07/22/21 18:59 06:59 18:59 Intake Total 1560 1440 360 Balance 1560 1440 360 Intake: Intake, IV Titration 1560 1040 Amount Sodium Chloride 0.9% 1, 1560 1040 000 ml @ 130 mls/hr IV . Q7H42M [facility] Rx#:[id number] Oral 400 360 Other: Voiding Method Toilet Toilet Toilet # Voids 2 2 - Labs CBC & Chem 7: 07/19/21 18:19 07/20/21 05:15
[2021-07-22] MEDS: ONDANSETRON 4 MG/2 ML VIAL IVP PRN (11:46)
--- NOTE | 2021-07-22 12:55 | P.PN ---
Subjective Progress Note Date: 07/22/21 Principal diagnosis: dehydration, dysphagia Iin f/u today patient is requesting diet advancement to soft. He did not aspirate on swallow eval. No further nausea. Supportive medications cont to help with the pain in the throat. Objective - Vital Signs Vital signs: Vital Signs Temp 98.7 F 07/22/21 05:00 Pulse 70 07/22/21 05:00 Resp 18 07/22/21 05:00 BP 134/64 07/22/21 05:00 Pulse Ox 98 07/22/21 05:00 Intake & Output 07/21/21 07/22/21 07/22/21 18:59 06:59 18:59 Intake Total 1560 1440 Balance 1560 1440 Intake: Intake, IV Titration 1560 1040 Amount Sodium Chloride 0.9% 1, 1560 1040 000 ml @ 130 mls/hr IV . Q7H42M [facility] Rx#:[id number] Oral 400 Other: Voiding Method Toilet Toilet # Voids 2 - Constitutional General appearance: Present: average body habitus, cooperative, no acute distress - EENT Eyes: Present: anicteric sclerae, EOMI ENT: Present: hearing grossly normal - Respiratory Details: resp even and unlabored - Integumentary Integumentary: Present: normal - Neurologic Neurologic: Present: CNII-XII intact - Musculoskeletal Musculoskeletal: Present: strength equal bilaterally - Psychiatric Psychiatric: Present: A&O x's 3, appropriate affect, intact judgment & insight - Labs CBC & Chem 7: 07/19/21 18:19 07/20/21 05:15 - Imaging and Cardiology barium swallow report reviewed Assessment and Plan (1) Dehydration Narrative/Plan: Improved labs. Pt feeling better. He is only receiving nutrition and fluids orally now. Current Visit: Yes Status: Acute Priority: High Code(s): E86.0 - DEHYDRATION SNOMED Code(s): 04960774 (2) Dysphagia Narrative/Plan: 2/ eso adeno and treatment. Kools solution with nystatin ordered 5xDay Dietitian has seen pt and provided nutritional options for dysphagia/odynophagia Current Visit: Yes Status: Acute Priority: High Code(s): R13.10 - DYSPHAGIA, UNSPECIFIED SNOMED Code(s): 72911288 (3) Squamous cell cancer of tongue Narrative/Plan: Patient has completed 2/2 cycles of cisplatin, last dose was about 10 days ago. Vomiting and electrolyte derangements were likely secondary to the same and are now improved. Labs improved. Discussed with Radiation Oncologist today. Pt has 8 more XRT to complete. Plans to complete. Resumption of therapy soon. No aspiration, no need for PEG. Cont meds for symptoms. Will plan for hydration in the outpt setting for the next 4 weeks PRN. Pt asked for soft food diet. Will try. Current Visit: Yes Status: Acute Priority: High Code(s): C02.9 - MALIGNANT NEOPLASM OF TONGUE, UNSPECIFIED SNOMED Code(s): 567780161 (4) Vomiting Narrative/Plan: Olanzapine and zofran ordered. Current Visit: Yes Status: Resolved Priority: High Code(s): R11.10 - VOMITING, UNSPECIFIED SNOMED Code(s): 828914407 Plan: Pt is ok from Hem/Onc standpoint to be discharged once cleared by Attending and Consulting MDs Doctor attests: I performed a history and physical examination of this patient, developed impression and plan of care, discussed with dictator. I agree with dictators note, documented as a scribe.
[2021-07-22] MEDS: ATORVASTATIN 20 MG TAB PO SCH (19:31)
[2021-07-22] MEDS: OLANZapine 2.5 MG TAB PO SCH (19:32)
[2021-07-23] MEDS: SODIUM CHLORIDE 0.9% 1,000 ML IV SCH ×2 (03:42→12:35)
[2021-07-23] MEDS: MAG HYDROX/AL HYDROX/SIMETH 30 ML, LIDOCAINE VISCOUS 2% 30 ML, diphenhydrAMINE ELIXIR 7... PO SCH ×8 (04:03→12:35)
[2021-07-23] MEDS: ENOXAPARIN 40 MG/0.4 ML SYRINGE SQ SCH (09:26)
[2021-07-23] MEDS: hydroCHLOROthiazide 25 MG TAB PO SCH (09:26)
[2021-07-23] MEDS: PANTOPRAZOLE 40 MG TABLET PO SCH (09:27)
--- NOTE | 2021-07-23 10:27 | P.DS ---
Providers Date of admission: 07/19/21 18:36 Expected date of discharge: 07/23/21 Attending physician: Sudha Hughes DO Consults: 07/19/21 18:36 Consult Physician Urgent Consulting Provider: Rick Barajas Consult Reason/Comments: Oncological care Do you want consulting provider notified?: Yes Primary care physician: Yari Valencia DO Hospital Course: Discharge Diagnosis: Acute mucositis, radiation-induced oral mucositis Squamous cell carcinoma of the throat Dysphasia Xerostomia Leukopenia, secondary to current anti-neoplastic medications/treatment Hypokalemia, resolved Hyponatremia, resolved Hospital Course: Patient is a very pleasant 51-year-old male recently diagnosed with throat cancer (squamous cell carcinoma ) and began chemotherapy and radiation 4 weeks ago. Patient reports follows with oncologist Dr. Roche in office and Dr. Martin for radiation/chemotherapy treatments. He presented to the emergency department 07/19/21 with a chief complaint of worsening dysphasia patient reports this began approximately 1 weeks ago after undergoing his second course of chemotherapy on 07/13/21 and has progressively worsened. Patient reports last radiation treatment on 07/19/21 and next dose due today. In the emergency department, patient underwent x-ray soft tissue of neck which was negative for cervical soft tissue abnormalities. Chest x-ray was negative for acute cardiopulmonary process An KUB was also negative for acute process. Patient was found to have leukopenia with WBC count of 3.6, hyponatremia with sodium of 133, and hypokalemia with potassium of 3.3. Labs otherwise showing no significant abnormalities. Covid PCR was negative. Patient was started on pain medications. He was also started on statins essential for oral thrush. Patient was seen by swallow eval and he is cleared for regular diet. Patient's diet was gradually advanced. At the time of discharge patient reported that he was able to eat his eggs for breakfast. Patient was seen by hematology and deemed stable for discharge. I was present in the room when oncology was rounding. Patient told to follow oncology for routine IV infusions to keep him hydrated. Patient will follow with his radiation oncologist to complete his radiation therapies. Patient seen and examined at bedside.[] Vital signs reviewed and stable. General: [non toxic], [no distress], [appears at stated age] Derm: [warm], [dry] Head: [atraumatic], [normocephalic], [symmetric] Eyes: [EOMI], [no lid lag], [anicteric sclera] Mouth: [Dry oral mucosa Cardiovascular: [S1S2 reg], [no murmur], [positive posterior tibial pulse bilateral], Lungs: [CTA bilateral], [no rhonchi, no rales] , [no accessory muscle use] Abdominal: [soft], [ nontender to palpation], [no guarding], [no appreciable organomegaly] Ext: [no gross muscle atrophy], [no edema], [no contractures] Neuro: [ CN II-XI grossly intact], [no focal neuro deficits] Psych: [Alert], [oriented], [appropriate affect] A total of [32] minutes of time were spent preparing this complex discharge summary . Patient Condition at Discharge: Poor Plan - Discharge Summary New Discharge Prescriptions: New Nystatin 100,000 Unit/ml Susp [Mycostatin Oral Susp] 3,000,000 unit PO 5XD 4 Days #60 ml Continue Hydrocodone/Acetaminophen [Hydrocodone/Acetaminophen 7.5-325/15 Ml] 15 ml PO Q8H PRN PRN Reason: Pain hydroCHLOROthiazide 25 mg PO DAILY Omeprazole 40 mg PO DAILY Atorvastatin [Lipitor] 20 mg PO HS Discharge Medication List Atorvastatin [Lipitor] 20 mg PO HS 07/19/21 [History] Hydrocodone/Acetaminophen [Hydrocodone/Acetaminophen 7.5-325/15 Ml] 15 ml PO Q8H PRN 07/19/21 [History] Omeprazole 40 mg PO DAILY 07/19/21 [History] hydroCHLOROthiazide 25 mg PO DAILY 07/19/21 [History] Nystatin 100,000 Unit/ml Susp [Mycostatin Oral Susp] 3,000,000 unit PO 5XD 4 Days #60 ml 07/23/21 [Rx] Follow up Appointment(s)/Referral(s): Rick Barajas MD [STAFF PHYSICIAN] - 1 Week Yari Valencia DO [Primary Care Provider] - 1-2 days Los Roche MD [STAFF PHYSICIAN] - 07/28/21 8:45 am Discharge Disposition: HOME SELF-CARE
[2021-07-23 12:14] VITALS: BP 136/80; PULSE 57; RESP 16; TEMP 98.2
--- NOTE | 2021-07-23 12:53 | P.PN ---
Subjective Progress Note Date: 07/23/21 Principal diagnosis: dehydration, dysphagia In f/u today patient tolerated his soft diet pretty well. He restarted XRT when he started feeling better. No further nausea. Supportive medications cont to help with the pain in the throat. Objective - Vital Signs Vital signs: Vital Signs Temp 97.6 F 07/23/21 07:38 Pulse 74 07/23/21 08:00 Resp 17 07/23/21 08:04 BP 134/84 07/23/21 07:38 Pulse Ox 92 L 07/23/21 04:00 Intake & Output 07/22/21 07/23/21 07/23/21 18:59 06:59 18:59 Intake Total 3170 1560 Balance 3170 1560 Intake: Intake, IV Titration 1440 1560 Amount Sodium Chloride 0.9% 1, 1440 1560 000 ml @ 130 mls/hr IV . Q7H42M JEREM[facility]AS Rx#:[id number] Oral 1730 Other: Voiding Method Toilet Toilet Toilet # Voids 5 - Constitutional General appearance: Present: average body habitus, cooperative, no acute distress - EENT Eyes: Present: anicteric sclerae, EOMI ENT: Present: hearing grossly normal, normal oropharynx - Respiratory Details: resp even and unlabored - Neurologic Neurologic: Present: CNII-XII intact - Musculoskeletal Musculoskeletal: Present: strength equal bilaterally - Psychiatric Psychiatric: Present: A&O x's 3, appropriate affect, intact judgment & insight - Labs CBC & Chem 7: 07/19/21 18:19 07/20/21 05:15 Assessment and Plan (1) Dehydration Narrative/Plan: Labs stable. Pt feels decent. He has only received nutrition and fluids orally for about 48 hours and is doing well. IV hydration is available to him in the ofc if needed. Current Visit: Yes Status: Acute Priority: High Code(s): E86.0 - DEHYDRATION SNOMED Code(s): 41795690 (2) Dysphagia Narrative/Plan: 07/01 eso adeno and treatment. Kools solution with nystatin ordered 5xDay-Rx were sent to pharmacy Dietitian has seen pt and provided nutritional options for dysphagia/odynophagia Current Visit: Yes Status: Acute Priority: High Code(s): R13.10 - DYSPHAGIA, UNSPECIFIED SNOMED Code(s): 60954683 (3) Squamous cell cancer of tongue Narrative/Plan: Patient has completed 2/2 cycles of cisplatin, last dose was about 11 days ago. Vomiting and electrolyte derangements were likely secondary to the same and are now improved. Labs improved. Discussed with Radiation Oncologist previously. Plans to complete 6 weeks total of therapy. XRT was resumed already. No aspiration, no need for PEG. Cont meds for symptoms. Orders for hydration in the outpt setting for the next 4 weeks PRN has been sent Current Visit: Yes Status: Acute Priority: High Code(s): C02.9 - MALIGNANT NEOPLASM OF TONGUE, UNSPECIFIED SNOMED Code(s): 526530264 (4) Vomiting Narrative/Plan: Olanzapine and zofran ordered. Current Visit: Yes Status: Resolved Priority: High Code(s): R11.10 - VOMITING, UNSPECIFIED SNOMED Code(s): 187616727 Plan: Pt is ok from Hem/Onc standpoint to be discharged once cleared by Attending and Consulting MDs. Dr. Barajas did briefly discuss case with Attending Doctor attests: I performed a history and physical examination of this patient, developed impression and plan of care, discussed with dictator. I agree with dictators note, documented as a scribe.
== END 2021-07-23 12:40 | disposition home or self-care (01) | DRG 158 ==
LOC: EC 17:02 → 5NMEDONC 18:36
PROVIDERS: ADMIT Internal Medicine; ATTEND Internal Medicine
DX: K12.30 Oral mucositis (ulcerative), unspecified (principal); B37.0 Candidal stomatitis; E87.1 Hypo-osmolality and hyponatremia; C02.9 Malignant neoplasm of tongue, unspecified; C14.0 Malignant neoplasm of pharynx, unspecified; D72.819 Decreased white blood cell count, unspecified; E78.5 Hyperlipidemia, unspecified; T45.1X5A Adverse effect of antineoplastic and immunosuppressive drugs, initial encounter; Y84.2 Radiological procedure and radiotherapy as the cause of abnormal reaction of the patient, or of later complication, without mention of misadventure at the time of the procedure; E87.6 Hypokalemia; E86.0 Dehydration; I10 Essential (primary) hypertension; K11.7 Disturbances of salivary secretion; R47.02 Dysphasia; Z20.822 Contact with and (suspected) exposure to COVID-19; Z79.899 Other long term (current) drug therapy
CPT/HCPCS: 36415; 70360; 71046; 74018; 74230; 77386; 80048; 80053; 82150; 83690; 85025; 85610; 85730; 87635; 96361; 96374; 99285

== ENCOUNTER 2021-08-05 11:04 | Observation (INO) | payer BC ==
--- NOTE | 2021-08-05 12:52 | ED ---
General Adult HPI - General Chief complaint: Recheck/Abnormal Lab/Rx Stated complaint: Can't swallow Time Seen by Provider: 08/05/21 12:32 Source: patient, family Mode of arrival: wheelchair Limitations: no limitations - History of Present Illness Initial comments: This 51-year-old male with a past medical history of throat and tongue cancer presents to the emergency department coming from [facility]. Patient states he went to the Center to get fluids to him not being able to eat or drink for the last couple of days, however they would like him to be admitted for further workup, fluids and antibiotics. Patient states he has a small sore on the inside of his left cheek that they want him to get antibiotics for. Patient states he has had no episodes similar to this a week ago where he was admitted to the hospital. Patient states he has been able to keep down a little bit of water over the last couple days, however has been vomiting up some of it and has not been able to eat any food. Patient states all fluids and solids have a bad taste in seem like they're getting stuck in his throat when trying to swallow. Patient currently does not feel like anything is stuck in his throat at this time. Patient denies any fevers, chest pain, or shortness of breath. Patient denies any hemoptysis. Patient denies any abdominal pain, headache, fever, change in vision or change in his urination. She states is diagnosed wit throat/tongue cancer in February 2021. - Related Data Home Medications Medication Instructions Recorded Confirmed Atorvastatin [Lipitor] 20 mg PO HS 07/19/21 08/05/21 Hydrocodone/Acetaminophen 15 ml PO Q8H PRN 07/19/21 08/05/21 [Hydrocodone/Acetaminophen 7.5-325/15 Ml] Omeprazole 40 mg PO DAILY 07/19/21 08/05/21 hydroCHLOROthiazide 25 mg PO DAILY 07/19/21 08/05/21 Freddy's 5 ml PO Q4H PRN 08/05/21 08/05/21 Solution(Maalox,Benadryl,Lidocaine 1:1) Mag Hydrox/Al Hydrox/Simeth 5 ml PO Q4H PRN 08/05/21 08/05/21 [Maalox] Allergies Allergy/AdvReac Type Severity Reaction Status Date / Time No Known Allergies Allergy Verified 08/05/21 14:19 Review of Systems ROS Statement: Those systems with pertinent positive or pertinent negative responses have been documented in the HPI. ROS Other: All systems not noted in ROS Statement are negative. Past Medical History Past Medical History: Cancer, Hyperlipidemia, Hypertension Additional Past Medical History / Comment(s): chemo- 07/13/2021. radiation- 07-17-2021. cx of throat and tounge stage 2. History of Any Multi-Drug Resistant Organisms: None Reported Additional Past Surgical History / Comment(s): Arm surgery, has had colonoscopy Additional Past Anesthesia/Blood Transfusion Reaction / Comment(s): No hx of transfusion at this time Past Psychological History: No Psychological Hx Reported Smoking Status: Never smoker Past Alcohol Use History: Unable to Obtain Past Drug Use History: None Reported - Past Family History famioy Family Medical History: No Reported History General Exam Limitations: no limitations General appearance: alert, in no apparent distress (She with basin in his lap and when trying to speak he does spit clear liquids in to basin) Head exam: Present: atraumatic, normocephalic, normal inspection Eye exam: Present: normal appearance, PERRL, EOMI. Absent: scleral icterus, conjunctival injection, periorbital swelling ENT exam: Present: normal exam, normal oropharynx (Posterior oropharynx with no exudates or abscesses visualized. Patient does have small apthous ulcer to inside of left cheek), mucous membranes moist Neck exam: Present: normal inspection, tenderness (Mild tenderness anterior/left sided neck where burn radha is present from radiation with slight skin peeling back where radiation was done), full ROM. Absent: meningismus, lymphadenopathy Respiratory exam: Present: normal lung sounds bilaterally. Absent: respiratory distress, wheezes, rales, rhonchi, stridor Cardiovascular Exam: Present: regular rate, normal rhythm, normal heart sounds. Absent: systolic murmur, diastolic murmur, rubs, gallop, clicks GI/Abdominal exam: Present: soft, normal bowel sounds. Absent: distended, tenderness, guarding, rebound, rigid Extremities exam: Present: full ROM Back exam: Present: full ROM. Absent: CVA tenderness (R), CVA tenderness (L), paraspinal tenderness, vertebral tenderness Neurological exam: Present: alert, oriented X3, CN II-XII intact Psychiatric exam: Present: normal affect, normal mood Skin exam: Present: warm, dry, intact, normal color. Absent: rash Course Vital Signs 08/05/21 11:05 Temperature 97.8 F Pulse Rate 66 Respiratory 18 Rate Blood Pressure 107/73 O2 Sat by Pulse 99 Oximetry Medical Decision Making - Medical Decision Making This 51-year-old male with a past medical history of febrile and tongue cancer presents to the emergency department coming from the cancer center to be admitted to the hospital for IV antibiotics and fluids. She states she is now done with chemo and radiation and has his last chemo treatment on 07/13/21 and states his last radiation treatment was 2 days ago which she has been doing for 6 weeks. I did speak with Anita Hickey DNP who works for [facility] who stated she is currently at the hospital but will call over to the [facility] and place all orders and antibiotics that they were requesting. I did speak with JB Lemons from [facility] physicians who agreed to admit patient to their services. Cristo Zamora, patient's primary nurse practitioner for his cancer did call me and asked I place him on fluids, and acyclovir IV due to the ulcer in his mouth and requested that nutrition/dietitian follows up in sees patient for possible Corpak evaluation. Discussed with patient who agreed to be admitted to the hospital for further workup/evaluation and treatment. Patient will be assessed by speech therapy for swallowing evaluation. Reviewed the case with my attending, . - Lab Data Result diagrams: 08/05/21 14:18 08/05/21 14:18 Lab Results 08/05/21 08/05/21 08/05/21 Range/Units 14:18 14:18 14:18 WBC 3.0 L (3.8-10.6) k/uL RBC 4.29 L (4.30-5.90) m/uL Hgb 13.6 (13.0-17.5) gm/dL Hct 37.9 L (39.0-53.0) % MCV 88.5 (80.0-100.0) fL MCH 31.8 (25.0-35.0) pg MCHC 36.0 (31.0-37.0) g/dL RDW 15.7 H (11.5-15.5) % Plt Count 201 (150-450) k/uL MPV 7.1 Neutrophils % 64 % Lymphocytes % 22 % Monocytes % 9 % Eosinophils % 1 % Basophils % 1 % Neutrophils # 1.9 (1.3-7.7) k/uL Lymphocytes # 0.7 L (1.0-4.8) k/uL Monocytes # 0.3 (0-1.0) k/uL Eosinophils # 0.0 (0-0.7) k/uL Basophils # 0.0 (0-0.2) k/uL Sodium 137 (137-145) mmol/L Potassium 3.5 (3.5-5.1) mmol/L Chloride 98 (98-107) mmol/L Carbon Dioxide 29 (22-30) mmol/L Anion Gap 10 mmol/L BUN 18 (9-20) mg/dL Creatinine 0.87 (0.66-1.25) mg/dL Est GFR (CKD-EPI)AfAm >90 (>60 ml/min/1.73 sqM) Est GFR (CKD-EPI)NonAf >90 (>60 ml/min/1.73 sqM) Glucose 87 (74-99) mg/dL Plasma Lactic Acid Noel 1.1 (0.7-2.0) mmol/L Calcium 9.0 (8.4-10.2) mg/dL Total Bilirubin 1.3 (0.2-1.3) mg/dL AST 27 (17-59) U/L ALT 39 (4-49) U/L Alkaline Phosphatase 91 (38-126) U/L Total Protein 6.9 (6.3-8.2) g/dL Albumin 4.0 (3.5-5.0) g/dL Urine Color Urine Appearance (Clear) Urine pH (5.0-8.0) Ur Specific [place] (1.001-1.035) Urine Protein (Negative) Urine Glucose (UA) (Negative) Urine Ketones (Negative) Urine Blood (Negative) Urine Nitrite (Negative) Urine Bilirubin (Negative) Urine Urobilinogen (<2.0) mg/dL Ur Leukocyte Esterase (Negative) Urine RBC (0-5) /hpf Urine WBC (0-5) /hpf Ur Squamous Epith Cells (0-4) /hpf Amorphous Sediment (None) /hpf Urine Mucus (None) /hpf 08/05/21 Range/Units 15:06 WBC (3.8-10.6) k/uL RBC (4.30-5.90) m/uL Hgb (13.0-17.5) gm/dL Hct (39.0-53.0) % MCV (80.0-100.0) fL MCH (25.0-35.0) pg MCHC (31.0-37.0) g/dL RDW (11.5-15.5) % Plt Count (150-450) k/uL MPV Neutrophils % % Lymphocytes % % Monocytes % % Eosinophils % % Basophils % % Neutrophils # (1.3-7.7) k/uL Lymphocytes # (1.0-4.8) k/uL Monocytes # (0-1.0) k/uL Eosinophils # (0-0.7) k/uL Basophils # (0-0.2) k/uL Sodium (137-145) mmol/L Potassium (3.5-5.1) mmol/L Chloride (98-107) mmol/L Carbon Dioxide (22-30) mmol/L Anion Gap mmol/L BUN (9-20) mg/dL Creatinine (0.66-1.25) mg/dL Est GFR (CKD-EPI)AfAm (>60 ml/min/1.73 sqM) Est GFR (CKD-EPI)NonAf (>60 ml/min/1.73 sqM) Glucose (74-99) mg/dL Plasma Lactic Acid Noel (0.7-2.0) mmol/L Calcium (8.4-10.2) mg/dL Total Bilirubin (0.2-1.3) mg/dL AST (17-59) U/L ALT (4-49) U/L Alkaline Phosphatase (38-126) U/L Total Protein (6.3-8.2) g/dL Albumin (3.5-5.0) g/dL Urine Color Yellow Urine Appearance Cloudy (Clear) Urine pH 6.0 (5.0-8.0) Ur Specific [place] 1.033 (1.001-1.035) Urine Protein 1+ H (Negative) Urine Glucose (UA) Negative (Negative) Urine Ketones 3+ H (Negative) Urine Blood Negative (Negative) Urine Nitrite Negative (Negative) Urine Bilirubin 1+ H (Negative) Urine Urobilinogen 6.0 (<2.0) mg/dL Ur Leukocyte Esterase Negative (Negative) Urine RBC 2 (0-5) /hpf Urine WBC 9 H (0-5) /hpf Ur Squamous Epith Cells 1 (0-4) /hpf Amorphous Sediment Rare H (None) /hpf Urine Mucus Many H (None) /hpf Disposition Clinical Impression: Leucopenia, History of tongue cancer, History of throat cancer, Trouble swallowing, Ulcer aphthous oral, Dehydration, Failure to thrive Disposition: ADMITTED IP TO THIS [facility] Condition: Serious Referrals: Yari Valencia DO [Primary Care Provider] - 1-2 days
[2021-08-05] MEDS ORDERED: SODIUM CHLORIDE 0.9% 500 ML 500 ML IV STA (13:05)
[2021-08-05 14:31] LABS: Basophils % (A) 1 %; Eosinophils % (A) 1 %; HCT 37.9 % (39.0-53.0); HGB 13.6 gm/dL (13.0-17.5); Lymphocytes # (A) 0.7 k/uL (1.0-4.8); Lymphocytes % (A) 22 %; MCH 31.8 pg (25.0-35.0); MCV 88.5 fL (80.0-100.0); Mean Platelet Volume 7.1; Monocytes # (A) 0.3 k/uL (0-1.0); Monocytes % (A) 9 %; Neutrophils # (A) 1.9 k/uL (1.3-7.7); Neutrophils % (A) 64 %; Platelet Count 201 k/uL (150-450); RBC 4.29 m/uL (4.30-5.90); RDW 15.7 % (11.5-15.5)
[2021-08-05 14:45] LABS: ALT 39 U/L (4-49); AST 27 U/L (17-59); African American GFR (CKD) >90 (>60 ml/min/1.73 sqM); Alkaline Phosphatase 91 U/L (38-126); Anion Gap 10 mmol/L; Blood Urea Nitrogen 18 mg/dL (9-20); Carbon Dioxide 29 mmol/L (22-30); Chloride 98 mmol/L (98-107); Glucose 87 mg/dL (74-99); Non-African American GFR(CKD) >90 (>60 ml/min/1.73 sqM); Potassium 3.5 mmol/L (3.5-5.1); Sodium 137 mmol/L (137-145); Total Bilirubin 1.3 mg/dL (0.2-1.3); Total Protein 6.9 g/dL (6.3-8.2)
[2021-08-05 15:39] LABS: Amorphous Sediment,Urine Rare /hpf; Appearance,Urine Cloudy (Clear); Bilirubin,Urine 1+ (Negative); Blood,Urine Negative (Negative); Color,Urine Yellow; Glucose,Urine (UA) Negative (Negative); Ketones,Urine 3+ (Negative); Leukocyte Esterase,Urine Negative (Negative); Mucus,Urine Many /hpf; Nitrite,Urine Negative (Negative); Protein,Urine 1+ (Negative); RBC,Urine 2 /hpf (0-5); Specific Gravity,Urine 1.033 (1.001-1.035); Squamous Epithelial Cell,Urine 1 /hpf (0-4); WBC,Urine 9 /hpf (0-5)
[2021-08-05] MEDS ORDERED: ONDANSETRON 4 MG/2 ML VIAL IVP PRN (15:47)
[2021-08-05] MEDS ORDERED: HYDROmorphone 1 MG/ML 1 ML SYRINGE IVP PRN (15:47)
[2021-08-05] MEDS ORDERED: NALOXONE 0.4 MG/ML 1 ML VIAL IV PRN (15:47)
[2021-08-05] MEDS ORDERED: SODIUM CHLORIDE 0.9% 1,000 ML IV SCH (16:00)
[2021-08-05] MEDS ORDERED: ACYCLOVIR SODIUM IVPB SCH (16:30)
[2021-08-05] MEDS ORDERED: SODIUM CHLORIDE 0.9% IVPB SCH (16:30)
--- NOTE | 2021-08-05 17:09 | P.HPIM ---
History of Present Illness H&P Date: 08/05/21 History of Presenting Illness: Patient is a very pleasant 51-year-old male recently diagnosed with throat cancer (squamous cell carcinoma ) and began chemotherapy and radiation 6 weeks ago and just completed last radiation treatment. Patient reports follows with oncologist Dr. Roche in office and Dr. Martin for radiation/chemotherapy treatments. He presented to the emergency department secondary to dysphasia. Patient reports inability to eat or drink anything in the past 2-3 days after completing last radiation treatment on Tuesday. Patient reports in addition to this he has had persistent spitting up of white/cream-colored sputum, continuous nausea and has soreness to the inside of his left cheek. Patient denies having any fevers, chills, headache, lightheadedness, dizziness, chest pain, palpitations, shortness of breath, dyspnea with exertion, vomiting, abdominal pain, or experiencing any numbness/tingling/weakness in his extremities. In the emergency department patient underwent full evaluation. Labs drawn revealing leukopenia with WBC count 3.0 otherwise labs unremarkable. Urinalysis negative for infection. ER provider spoke with oncology recommending starting patient on acyclovir and admitting to observation unit under our services. Review of systems: Pertinent positives and negatives as discussed in HPI, a complete review of systems was performed and all other systems are negative. Physical exam: Vital signs reviewed and stable. General: Nontoxic, no distress and appears stated age. Derm: Skin warm and dry, normal coloration for ethnicity. Patient has a radiation burn to left anterior side of neck. Head: Atraumatic, normocephalic and symmetric. Eyes: EOMs intact, no lid lag, and anicteric sclera Mouth: no lip lesions, mucus membranes moist, left buccal area erythematous, no distinct ulcer or lesion noted on assessment however patient did have difficulties keeping mouth open and sticking out tongue due to consistently having to spit out secretions. Cardiovascular: regular rate and rhythm with normal S1S2, no murmur, positive posterior tibial pulses bilaterally, and cap refill < 2 seconds. Lungs: Respirations even, regular, and unlabored on room air. Lungs CTA bilaterally, no rhonchi, no rales, no wheezing, and no accessory muscle usage. Abdominal: soft, nontender to palpation, no guarding, no appreciable organomegaly Ext: ROM intact. No gross muscle atrophy, no edema, no contractures Neuro: Speech clear, face symmetrical and CN II-XII grossly intact with no noted focal neuro deficits Psych: Alert and oriented to person, place, time, and situation. Appropriate and pleasant affect. Assessment and Plan of Care: Acute mucositis, radiation-induced oral mucositis Squamous cell carcinoma of the throat Dysphasia Xerostomia -Artificial saliva -Magic mouthwash with nystatin, Benadryl, lidocaine, and Maalox -Hurricaine spray -Symptomatic and supportive measures -Pain control with opiates -Oncology consulted appreciate further recommendations -Continue hydration with IV fluids. Leukopenia, secondary to current anti-neoplastic medications/treatment -We will provide neutropenic precautions for patient safety and continue to monitor with repeat a.m. labs. GERD PPI prophylaxis with Protonix 40 mg IVP twice daily Hyperlipidemia -Continue daily medication regimen with atorvastatin 20 mg nightly. CODE STATUS: Full code DVT prophylaxis: Lovenox Discussed with: Patient and RN Anticipated discharge date: Clinical course to determine Anticipated discharge place: Home A total of 45 minutes was spent on the care of this complex patient more than 50% of the time was spent in counseling and care coordination. Past Medical History Past Medical History: Cancer, Hyperlipidemia, Hypertension Additional Past Medical History / Comment(s): chemo- 07/13/2021. radiation- 07-17-2021. cx of throat and tounge stage 2. History of Any Multi-Drug Resistant Organisms: None Reported Additional Past Surgical History / Comment(s): Arm surgery, has had colonoscopy Additional Past Anesthesia/Blood Transfusion Reaction / Comment(s): No hx of transfusion at this time Past Psychological History: No Psychological Hx Reported Smoking Status: Never smoker Past Alcohol Use History: Unable to Obtain Past Drug Use History: None Reported - Past Family History famioy Family Medical History: No Reported History Medications and Allergies Home Medications Medication Instructions Recorded Confirmed Type Atorvastatin [Lipitor] 20 mg PO HS 07/19/21 08/05/21 History Hydrocodone/Acetaminophen 15 ml PO Q8H PRN 07/19/21 08/05/21 History [Hydrocodone/Acetaminophen 7.5-325/15 Ml] Omeprazole 40 mg PO DAILY 07/19/21 08/05/21 History hydroCHLOROthiazide 25 mg PO DAILY 07/19/21 08/05/21 History Freddy's 5 ml PO Q4H PRN 08/05/21 08/05/21 History Solution(Maalox,Benadryl,Lidocaine 1:1) Mag Hydrox/Al Hydrox/Simeth 5 ml PO Q4H PRN 08/05/21 08/05/21 History [Maalox] Allergies Allergy/AdvReac Type Severity Reaction Status Date / Time No Known Allergies Allergy Verified 08/05/21 14:19 Physical Exam Vitals: Vital Signs Temp Pulse Resp BP Pulse Ox 08/05/21 11:05 97.8 F 66 18 107/73 99 Intake and Output 08/05/21 08/05/21 08/05/21 06:59 14:59 22:59 Other: Weight 121.563 kg Results CBC & Chem 7: 08/05/21 14:18 08/05/21 14:18 Labs: Abnormal Lab Results - Last 24 Hours (Table) 08/05/21 08/05/21 Range/Units 14:18 15:06 WBC 3.0 L (3.8-10.6) k/uL RBC 4.29 L (4.30-5.90) m/uL Hct 37.9 L (39.0-53.0) % RDW 15.7 H (11.5-15.5) % Lymphocytes # 0.7 L (1.0-4.8) k/uL Urine Protein 1+ H (Negative) Urine Ketones 3+ H (Negative) Urine Bilirubin 1+ H (Negative) Urine WBC 9 H (0-5) /hpf Amorphous Sediment Rare H (None) /hpf Urine Mucus Many H (None) /hpf
[2021-08-05] MEDS ORDERED: BENZOCAINE SPRAY 1 CAN MUCOUS MEM PRN (17:11)
[2021-08-05] MEDS ORDERED: HYDROcodone/APAP 15 ML SOLUTION PO PRN (17:46)
[2021-08-05] MEDS ORDERED: PROCHLORPERAZINE INJ 10 MG/2 ML VIAL IVP PRN (17:49)
[2021-08-05] MEDS ORDERED: HYDROmorphone 0.5 MG/0.5 ML SYRINGE IVP STA (17:52)
[2021-08-05] MEDS ORDERED: DRY MOUTH SPRAY 44.3 SPRAY/44.3 ML SPRAY MUCOUS MEM PRN (17:57)
[2021-08-05] MEDS: MAG HYDROX/AL HYDROX/SIMETH 30 ML, LIDOCAINE VISCOUS 2% 30 ML, diphenhydrAMINE ELIXIR 7... PO SCH ×4 (18:07)
[2021-08-05] MEDS: ACYCLOVIR SODIUM IVPB SCH (18:30)
[2021-08-05] MEDS: SODIUM CHLORIDE 0.9% IVPB SCH (18:30)
[2021-08-05] MEDS: DEXTROSE 5%-0.45% NACL 1,000 ML IV SCH (18:32)
[2021-08-05] MEDS ORDERED: ATORVASTATIN 20 MG TAB PO SCH (21:00)
[2021-08-05] MEDS: PANTOPRAZOLE 40 MG/10 ML VIAL IVP SCH (21:46)
[2021-08-06] MEDS: MAG HYDROX/AL HYDROX/SIMETH 30 ML, LIDOCAINE VISCOUS 2% 30 ML, diphenhydrAMINE ELIXIR 7... PO SCH ×8 (02:13→07:51)
[2021-08-06] MEDS: ACYCLOVIR SODIUM IVPB SCH ×2 (02:13→07:55)
[2021-08-06] MEDS: SODIUM CHLORIDE 0.9% IVPB SCH ×2 (02:13→07:55)
[2021-08-06] MEDS: DEXTROSE 5%-0.45% NACL 1,000 ML IV SCH (05:35)
[2021-08-06 07:51] VITALS: RESP 17
[2021-08-06] MEDS ORDERED: ENOXAPARIN 40 MG/0.4 ML SYRINGE SQ SCH (09:00)
--- NOTE | 2021-08-06 10:35 | P.CONS ---
History of Present Illness - Reason for Consult Consult date: 08/06/21 oral carcinoma Requesting physician: Cristal Moe - Chief Complaint Dysphagia, odynophagia - History of Present Illness Mr. Blakely is a very pleasant 51-year-old male patient with well controlled, medically managed HTN, hyperlipidemia, GERD under the care of Oncologist Dr. Roche who presented with a painless left mid cervical lesion persistent for about 2-3 months, progressively enlarging. He had a CT scan done showing 2 enlarged cervical lymph nodes, the largest was 3.3 cm. FNA 03/10/21 was positive for squamous cell carcinoma, P 16 positive. Staging PET scan 04/07/21 showed uptake in the 2 known cervical lymph nodes and left base of the tongue, which was felt to represent the primary tumor site. No other metastatic lesions, no contralateral lymphadenopathy. Patient was evaluated by Dr. Leon, recommendation was for neoadjuvant concurrent chemoradiation. Patient is status post 2 cycles of cisplatin, 07/13/21. He completed radiation 08/03/21. He was in ofc yesterday with c/o dysphagia, odynophagia, mild nausea, no vomiting, fever. Appetite is ok, has no taste. He will occasionally have difficulty swallowing his secretions. No other c/o on a 14 point ROS. His CBC and CMP were ok, he is on clear liquids, IVF, started on IV acyclovir. Review of Systems 14 point ROS is neg except as stated HPI Past Medical History Past Medical History: Cancer, Hyperlipidemia, Hypertension Additional Past Medical History / Comment(s): chemo- 07/13/2021. radiation- 07-17-2021. cx of throat and tounge stage 2. History of Any Multi-Drug Resistant Organisms: None Reported Additional Past Surgical History / Comment(s): Arm surgery, has had colonoscopy Additional Past Anesthesia/Blood Transfusion Reaction / Comm: No hx of transfusion at this time Past Psychological History: No Psychological Hx Reported Smoking Status: Never smoker Past Alcohol Use History: Unable to Obtain Past Drug Use History: None Reported - Past Family History famioy Family Medical History: No Reported History Medications and Allergies Home Medications Medication Instructions Recorded Confirmed Type Atorvastatin [Lipitor] 20 mg PO HS 07/19/21 08/05/21 History Hydrocodone/Acetaminophen 15 ml PO Q8H PRN 07/19/21 08/05/21 History [Hydrocodone/Acetaminophen 7.5-325/15 Ml] Omeprazole 40 mg PO DAILY 07/19/21 08/05/21 History hydroCHLOROthiazide 25 mg PO DAILY 07/19/21 08/05/21 History Freddy's 5 ml PO Q4H PRN 08/05/21 08/05/21 History Solution(Maalox,Benadryl,Lidocaine 1:1) Mag Hydrox/Al Hydrox/Simeth 5 ml PO Q4H PRN 08/05/21 08/05/21 History [Maalox] Allergies Allergy/AdvReac Type Severity Reaction Status Date / Time No Known Allergies Allergy Verified 08/05/21 14:19 Physical Exam Vitals: Vital Signs Temp Pulse Pulse Resp BP BP Pulse Ox 08/06/21 07:50 97.9 F 64 17 114/64 96 08/06/21 04:34 98.1 F 70 16 117/64 97 08/05/21 20:00 97.9 F 68 18 136/81 98 08/05/21 18:51 98.5 F 67 16 131/76 93 L 08/05/21 11:05 97.8 F 66 18 107/73 99 Intake and Output 08/05/21 08/06/21 08/06/21 22:59 06:59 14:59 Intake Total 800 Balance 800 Intake: Intake, IV Titration 800 Amount Dextrose 5%-0.45% NaCl 1, 800 000 ml @ 100 mls/hr IV . Q10H [facility] Rx#:[id number] Other: Weight 121.563 kg - Constitutional General appearance: cooperative, no acute distress, obese - EENT generalized oral mucosal redness, mucositis Eyes: anicteric sclerae, EOMI ENT: hearing grossly normal - Neck Neck: no lymphadenopathy - Respiratory Respiratory: bilateral: CTA - Cardiovascular Rhythm: regular Heart sounds: normal: S1, S2 Abnormal Heart Sounds: no systolic murmur, no diastolic murmur, no rub, no S3 Gallop, no S4 Gallop, no click, no other leg Peripheral Edema: bilateral: None - Gastrointestinal General gastrointestinal: no absent bowel sounds, no decreased bowel sounds, no distended, no hepatomegaly, no hyperactive bowel sounds, normal bowel sounds, no organomegaly, no rigid, no scaphoid, soft, no splenomegaly, no tenderness, no umbilical hernia, no ventral hernia - Integumentary Integumentary: normal - Neurologic Neurologic: CNII-XII intact - Musculoskeletal Musculoskeletal: strength equal bilaterally - Psychiatric Psychiatric: A&O x's 3, appropriate affect, intact judgment & insight Results CBC & Chem 7: 08/05/21 14:18 08/05/21 14:18 Labs: Abnormal Lab Results - Last 24 Hours (Table) 08/05/21 08/05/21 Range/Units 14:18 15:06 WBC 3.0 L (3.8-10.6) k/uL RBC 4.29 L (4.30-5.90) m/uL Hct 37.9 L (39.0-53.0) % RDW 15.7 H (11.5-15.5) % Lymphocytes # 0.7 L (1.0-4.8) k/uL Urine Protein 1+ H (Negative) Urine Ketones 3+ H (Negative) Urine Bilirubin 1+ H (Negative) Urine WBC 9 H (0-5) /hpf Amorphous Sediment Rare H (None) /hpf Urine Mucus Many H (None) /hpf Assessment and Plan (1) Acute mucositis Narrative/Plan: 2/2 chemo/XRT. IVF, antiviral, clear liquid diet, oral supportive care. Current Visit: Yes Status: Acute Priority: High Code(s): K12.30 - ORAL MUCOSITIS (ULCERATIVE), UNSPECIFIED SNOMED Code(s): 083843626 (2) Squamous cell cancer of tongue Narrative/Plan: Completed definitive treatment of the same 08/03/21. Cont f/u as directed by Onc and Rad Onc. Current Visit: No Status: Chronic Priority: Medium Code(s): C02.9 - MALIGNANT NEOPLASM OF TONGUE, UNSPECIFIED SNOMED Code(s): 531523864 Plan: Doctor attests: I performed a history and physical examination of this patient, developed impression and plan of care. Discussed with dictator. I agree with dictators note, documented as a scribe.
[2021-08-06] MEDS ORDERED: ONDANSETRON 4 MG/2 ML VIAL IVP PRN (10:37)
[2021-08-06] MEDS: PANTOPRAZOLE 40 MG/10 ML VIAL IVP SCH (11:19)
[2021-08-06 12:17] VITALS: BP 112/67; PULSE 52; TEMP 98.3
[2021-08-06 12:24] VITALS: BMI 36.3
--- NOTE | 2021-08-06 15:08 | P.DS ---
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 Patient reports follows with oncologist Dr. Roche in office and Dr. Martin for radiation/chemotherapy treatments. He presented to the emergency department secondary to dysphasia. Patient reports inability to eat or drink anything in the past 2-3 days after completing last radiation treatment on Tuesday. Patient reports in addition to this he has had persistent spitting up of white/cream-colored sputum, continuous nausea and has soreness to the inside of his left cheek. Patient denies having any fevers, chills, headache, lightheadedness, dizziness, chest pain, palpitations, shortness of breath, dyspnea with exertion, vomiting, abdominal p ain, or experiencing any numbness/tingling/weakness in his extremities. In the emergency department patient underwent full evaluation. Labs drawn revealing leukopenia with WBC count 3.0 otherwise labs unremarkable. Urinalysis negative for infection. ER provider spoke with oncology recommending starting patient on acyclovir and admitting to observation unit under our services. Patient was started on artificial saliva, cool solution containing nystatin, Benadryl, lidocaine, and Maalox as well as Hurricaine spray. Patient reports significant improvement overnight. He is tolerating clear liquid diet and this was advanced to full liquid/soft diet and patient continued to tolerate. Patient underwent evaluation by speech and language pathologist, dietitian, and oncology. Patient now able to maintain/swallow his secretions, tolerate oral intake, and maintain airway. Patient denies having any headache, lightheadedness, dizziness, chest pain, palpitations, or shortness of breath. Patient medically stable for discharge at this time and to follow up with PCP in 1-2 days and oncology as previously scheduled. Prescriptions were sent for patient to continue with artificial saliva, cold solution, and Hurricaine spray for home medication regimen. Physical exam: Vital signs reviewed and stable. General: Nontoxic, no distress and appears stated age. Derm: Skin warm and dry, normal coloration for ethnicity. Patient has a radiation burn to left anterior side of neck. Head: Atraumatic, normocephalic and symmetric. Eyes: EOMs intact, no lid lag, and anicteric sclera Mouth: no lip lesions, mucus membranes moist, left buccal area erythematous, no distinct ulcer or lesion noted on assessment however patient did have difficulties keeping mouth open and sticking out tongue due to consistently having to spit out secretions. Cardiovascular: regular rate and rhythm with normal S1S2, no murmur, positive posterior tibial pulses bilaterally, and cap refill < 2 seconds. Lungs: Respirations even, regular, and unlabored on room air. Lungs CTA bilaterally, no rhonchi, no rales, no wheezing, and no accessory muscle usage. Abdominal: soft, nontender to palpation, no guarding, no appreciable organomegaly Ext: ROM intact. No gross muscle atrophy, no edema, no contractures Neuro: Speech clear, face symmetrical and CN II-XII grossly intact with no noted focal neuro deficits Psych: Alert and oriented to person, place, time, and situation. Appropriate and pleasant affect. A total of 35 minutes of time were spent preparing this complex discharge summary. Patient Condition at Discharge: Stable Plan - Discharge Summary New Discharge Prescriptions: New Benzocaine Blackfoot [Hurricaine Blackfoot] 1 spray MUCOUS MEM QID PRN #1 dispenser PRN Reason: Mouth Irritation Continue Hydrocodone/Acetaminophen [Hydrocodone/Acetaminophen 7.5-325/15 Ml] 15 ml PO Q8H PRN PRN Reason: Pain hydroCHLOROthiazide 25 mg PO DAILY Omeprazole 40 mg PO DAILY Mag Hydrox/Al Hydrox/Simeth [Maalox] 5 ml PO Q4H PRN PRN Reason: Pain Atorvastatin [Lipitor] 20 mg PO HS Freddy's Solution(Maalox,Benadryl,Lidocaine 1:1) 5 ml PO Q4H PRN PRN Reason: Pain Discharge Medication List Atorvastatin [Lipitor] 20 mg PO HS 07/19/21 [History] Hydrocodone/Acetaminophen [Hydrocodone/Acetaminophen 7.5-325/15 Ml] 15 ml PO Q8H PRN 07/19/21 [History] Omeprazole 40 mg PO DAILY 07/19/21 [History] hydroCHLOROthiazide 25 mg PO DAILY 07/19/21 [History] Freddy's Solution(Maalox,Benadryl,Lidocaine 1:1) 5 ml PO Q4H PRN 08/05/21 [History] Mag Hydrox/Al Hydrox/Simeth [Maalox] 5 ml PO Q4H PRN 08/05/21 [History] Benzocaine Blackfoot [Hurricaine Blackfoot] 1 spray MUCOUS MEM QID PRN #1 dispenser 08/06/21 [Rx] Follow up Appointment(s)/Referral(s): Yari Valencia DO [Primary Care Provider] - 08/10/21 9:30 am Patient Instructions/Handouts: Benzocaine (By mouth), Dehydration (DC), Oral Mucositis (DC), Mouth Cancer (DC) Activity/Diet/Wound Care/Special Instructions: Activity: As tolerated. Take breaks as needed. Diet: Heart healthy and carb consistent diet. Avoid salts, or foods with hidden salts such as canned or boxed foods and frozen dinners. Extra salt makes your heart work harder and traps the fluid in your body for longer. Special Instructions: Take all of your medications as directed and remember to keep all of your doctor's appointments and follow-up as needed. Thank you for allowing us to participate in your care, it was truly a pleasure having you for our patient!!! Discharge Disposition: HOME SELF-CARE
== END 2021-08-06 16:21 | disposition home or self-care (01) ==
LOC: EC 11:04 → 5NMEDONC 15:47
PROVIDERS: ADMIT Internal Medicine; ATTEND Internal Medicine
DX: K12.32 Oral mucositis (ulcerative) due to other drugs (principal); T50.8X5A Adverse effect of diagnostic agents, initial encounter; K12.0 Recurrent oral aphthae; C02.9 Malignant neoplasm of tongue, unspecified; C14.0 Malignant neoplasm of pharynx, unspecified; C77.0 Secondary and unspecified malignant neoplasm of lymph nodes of head, face and neck; K11.7 Disturbances of salivary secretion; D70.1 Agranulocytosis secondary to cancer chemotherapy; T45.1X5A Adverse effect of antineoplastic and immunosuppressive drugs, initial encounter; K21.9 Gastro-esophageal reflux disease without esophagitis; E78.5 Hyperlipidemia, unspecified; I10 Essential (primary) hypertension; T20.07XA Burn of unspecified degree of neck, initial encounter; T31.0 Burns involving less than 10% of body surface; R11.2 Nausea with vomiting, unspecified; E86.0 Dehydration; R62.7 Adult failure to thrive; E66.9 Obesity, unspecified; Z68.36 Body mass index [BMI] 36.0-36.9, adult; Z79.899 Other long term (current) drug therapy; Y84.2 Radiological procedure and radiotherapy as the cause of abnormal reaction of the patient, or of later complication, without mention of misadventure at the time of the procedure; Z92.3 Personal history of irradiation; Z92.21 Personal history of antineoplastic chemotherapy; Z71.9 Counseling, unspecified
CPT/HCPCS: 96376; 96366 ×2; 96372; 96375 ×2; 96361; 96365; 99284; 36415; 92610; 80053; 83605; 85025; 81001; G0378 ×2; J0133 ×2; J2405; J1650; C9113 ×2

== ENCOUNTER → 2021-09-28 | Outpatient (CLI) | payer BC ==
--- NOTE | 2021-09-28 10:23 | CT ---
CT brain without and with contrast HISTORY: CO 1 Helical acquisition obtained pre and post administration of 100 cc Isovue-300 IV. Automated exposure control for dose reduction, DLP 2400.94 mGycentimeters No comparisons Possible choroidal fissure cyst noted on the left. There is no hemorrhage or hydrocephalus. No abnorm al enhancement to suggest metastatic disease. Lu white differentiation is maintained. The calvarium is intact. Paranasal sinuses and mastoid air cells as visualized are normal. Orbits show symmetric a ppearance. IMPRESSION: No evident abnormal enhancement to suggest metastatic disease
--- NOTE | 2021-09-28 12:25 | CT ---
EXAMINATION TYPE: CT soft tissue neck wo/w con DATE OF EXAM: 09/28/2021 12:12 PM COMPARISON: CT 04/30/2021 HISTORY: Tongue CA CT DLP: 1337.78 mGycm Automated exposure control for dose reduction was used. CONTRAST: CT scan of the neck is performed following without and with IV Contrast, patient injected with 100 mL of Isovue 300. Axial images are obtained, coronal and sagittal reformatted images are reviewed. FINDINGS: Level the true and false growth cords thought to be normal. There may be some laryngeal karishma ma at the level of the hyoid bone. Airway: The previously identified hyperdense mass at the level of the posterior aspect of the tongue involving the region of the vallecula is not seen with certainty on today's exam Parotid/submandibular glands: No gross abnormality seen. 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 Mild atheromatous change present at the carotid bifurcation level on the left. Osseous Structures: Some degenerative disc changes are noted at C4-5 and C5-6, C6-7 Other: Lung apices within normal limits IMPRESSION: There is interval improvement in the previous identified abnormal soft tissue, mass at t he base of the tongue. Probable posttreatment changes as described.
== END | disposition home or self-care (01) ==
LOC: RADCTMAIN 07:50
PROVIDERS: ATTEND Radiology Radiation Oncology
DX: C01 Malignant neoplasm of base of tongue (principal); C77.0 Secondary and unspecified malignant neoplasm of lymph nodes of head, face and neck; Z79.899 Other long term (current) drug therapy
CPT/HCPCS: 70492; 70470; Q9967

== ENCOUNTER → 2021-10-30 | Outpatient (CLI) | payer BC ==
--- NOTE | 2021-10-31 07:15 | PE ---
EXAMINATION TYPE: PET CT fusion skull to thigh DATE OF EXAM: 10/30/2021 COMPARISON: Prior outside PET/CT April 07, 2021 HISTORY: Head and neck cancer progress study. Completed chemotherapy July 13, 2021. History of ne ck radiation treatment. TECHNIQUE: Following the intravenous administration of 11.08 mCi of F-18 FDG, whole body images are performed from the skull base to the midthigh. Images are reviewed on the computer in the coronal, a xial, and sagittal planes. Reconstructed rotating images are created on independent workstation and reviewed on the computer. A localization and attenuation correction CT is performed in conjunction with the PET scan. Dedicated PET/CT imaging of the head and neck is performed. Blood glucose level eq uals 78. SCAN: Subsequent Scan FINDINGS: HEAD AND NECK: No residual areas of abnormal hypermetabolic uptake at base of tongue or residual lef t neck adenopathy. No new areas of abnormal hypermetabolic uptake. CHEST, MEDIASTINUM, AND HILAR REGION: No new areas of abnormal hypermetabolic uptake. ABDOMEN AND PELVIS: Normal excretion. No new areas of abnormal hypermetabolic uptake. OSSEOUS STRUCTURES: No new areas of abnormal hypermetabolic uptake. OTHER CT: Nasal septal deviation. Mild subcutaneous edema submandibular region presumed posttreatment change. Prostate gland upper limits of normal in size. Tiny fat-containing left inguinal hernia. Sigmoid colo patrick diverticulosis redemonstrated. Tiny fat-containing umbilical hernia. IMPRESSION: Complete positive treatment response. No new or residual areas of abnormal hypermetabolic uptake.
== END | disposition home or self-care (01) ==
LOC: RADPETMAIN 08:52
PROVIDERS: ATTEND Radiology Radiation Oncology
DX: C01 Malignant neoplasm of base of tongue (principal); C77.0 Secondary and unspecified malignant neoplasm of lymph nodes of head, face and neck; Z79.899 Other long term (current) drug therapy
CPT/HCPCS: 78815; A9552

== ENCOUNTER → 2023-01-21 | Outpatient (CLI) | payer BC ==
--- NOTE | 2023-01-23 14:15 | CT ---
EXAMINATION TYPE: CT neck chest w con DATE OF EXAM: 01/21/2023 COMPARISON: 07/23/2022, 10/30/2021 HISTORY: 52-year-old male C76.0, tongue and throat ca. TECHNIQUE: Contiguous axial scanning of the soft tissues of the neck and chest performed with IV Cont rast, patient injected with 100ml mL of Isovue 300. Coronal/sagittal reconstructions performed. CT DLP: 1859.3 mGycm Automated exposure control for dose reduction was used. FINDINGS: NECK: Mild residual thickening along the cervical mucosal space of the hypopharynx similar to slightly impr jailene from prior. No recurrent mass with particular attention to the posterior tongue and left tonsill ar pillar. Mild thickening of the epiglottis likely posttreatment change, similar. Nasopharynx is clear. Gliotic and subglottic structures appear clear. Thyroid gland, submandibular glands are satisfactory. Extensive artifacts likely relating to the prabha ent's arms up limiting assessment of the parotid glands. No obvious cervical lymphadenopathy with particular attention to the left submandibular space/station 2A at the site of pathologic adenopathy on 04/30/2021. No new cervical lymphadenopathy seen. Bones: Limited due to elevated patient shoulders. CHEST: Heart normal size without pericardial effusion. Aorta normal caliber with aberrant right subclavian artery that takes a retroesophageal course. No thoracic lymph adenopathy by CT size criteria. Strandy dependent atelectasis noted. There is a stable 5 mm left mid lung pulmonary nodule. Presently , the nodule is calcified compatible with a benign calcified granuloma. No new or suspicious pulmonar y nodules are seen. Minimal emphysematous change. There is a small hiatal hernia. Visualized upper abdomen otherwise shows no gross abnormality. Bones: No osseous destructive process. IMPRESSION: NECK: 1. POSTTREATMENT CHANGE WITH SIMILAR MILD DIFFUSE THICKENING OF THE MUCOSAL SPACE OF THE HYPOPHARYNX. NO RECURRENT MASS OR SUSPICIOUS LYMPHADENOPATHY IDENTIFIED. SOME LIMITATION DUE TO PATIENT'S SHOULDE RS AND ELEVATED ARMS. CHEST: 2. STABLE 5 MM LEFT MID LUNG PULMONARY NODULE. PRESENTLY, THE NODULE IS CALCIFIED COMPATIBLE WITH A B ENIGN CALCIFIED GRANULOMA. 3. MINIMAL SCATTERED EMPHYSEMATOUS CHANGE NOTED. NO EVIDENCE FOR METASTATIC DISEASE TO THE CHEST. 4. SMALL HIATAL HERNIA.
== END | disposition home or self-care (01) ==
LOC: RADCTMAIN 15:53
PROVIDERS: ATTEND Internal Medicine Hematology & Oncology
DX: C76.0 Malignant neoplasm of head, face and neck (principal); C14.0 Malignant neoplasm of pharynx, unspecified; J43.9 Emphysema, unspecified; K44.9 Diaphragmatic hernia without obstruction or gangrene; E78.5 Hyperlipidemia, unspecified; B37.0 Candidal stomatitis; R91.1 Solitary pulmonary nodule; Z71.3 Dietary counseling and surveillance; Z98.890 Other specified postprocedural states
CPT/HCPCS: 70491; 71260; Q9967

== ENCOUNTER → 2024-02-10 | Outpatient (CLI) | payer BC ==
--- NOTE | 2024-02-10 17:00 | CT ---
EXAMINATION TYPE: CT neck chest w con CT DLP: 2975.7 mGycm, Automated exposure control for dose reduction was used. DATE OF EXAM: 02/10/2024 4:46 PM COMPARISON: 01/21/2023. CLINICAL INDICATION: Male, 53 years old with history of Z08 ENCNTR FOR FOLLOW-UP EXAM AFTER Z85.810,Z 92.3;, Tongue and throat Ca. TECHNIQUE: Standard enhanced CT of the neck and chest. Axial sections with coronal and sagittal refo rmats were obtained. Contrast used:100 mL of Isovue 370 with IV Contrast, (none if empty) Oral contrast used: (none if empty) FINDINGS: Brain: Visualized portions are grossly unremarkable. Orbits: Unremarkable Sinuses: Grossly unremarkable. Spaces of the neck: Clear and symmetric. No new or enlarging lymph nodes or masses. The mucosal and p arapharyngeal space appear symmetric. The larynx is symmetrical. Musculoskeletal: No acute osseous pathology. Lymph nodes: Multiple nonenlarged lymph nodes are seen along both anterior chains of the neck. Vascular structures: Visualized major arteries are patent without evidence of aneurysm. Thoracic Inlet/airway: Airway is patent. The lung apices are clear. Soft tissues/Thyroid: Thyroid and remainder of the soft tissues are unremarkable. Other: none. LUNGS/ PLEURA: No focal consolidation, pneumothorax or pleural effusion. Stable left calcified granul david. AIRWAY: Patent and unremarkable. HEART: Size within normal limits. MEDIASTINUM: No gross evidence of adenopathy. VASCULATURE: No aortic aneurysm. Right subclavian artery with a retroesophageal course. MUSCULOSKELETAL: No acute osseous abnormalities SOFT TISSUES/LYMPH NODES: Unremarkable. LOWER NECK: No significant findings. UPPER ABDOMEN: No significant findings. IMPRESSION: Stable exam without evidence for enlarging mass or lymphadenopathy. The mucosal and neck are rather s ymmetric.
== END | disposition home or self-care (01) ==
LOC: RADCTMAIN 15:28
PROVIDERS: ATTEND Radiology Radiation Oncology
DX: Z08 Encounter for follow-up examination after completed treatment for malignant neoplasm (principal); C77.0 Secondary and unspecified malignant neoplasm of lymph nodes of head, face and neck; C01 Malignant neoplasm of base of tongue; Z85.810 Personal history of malignant neoplasm of tongue; Z92.3 Personal history of irradiation; Z79.899 Other long term (current) drug therapy
CPT/HCPCS: 70491; 71260